=== PATIENT | female | born 1945 | race Caucasian/White ===

== ENCOUNTER 2021-01-27 16:02 | Emergency (ER) | payer MEDICARE, OTHER ==
[~2021-01-27] VITALS: Ht 162.6 cm; Wt 92.6 kg
[2021-01-27 16:38] LABS: BASOPHILS ABSOLUTE AUTO 0.03 K/mm3 (0.00-0.23); BASOPHILS PERCENT AUTO 1 % (0-2); EOSINOPHILS ABSOLUTE AUTO 0.09 K/mm3 (0.00-0.68); EOSINOPHILS PERCENT AUTO 2 % (0-6); Hematocrit 32.5 % (33.0-51.0); Hemoglobin 10.9 g/dL (11.5-16.0); IMMATURE GRAN ABSOLUTE AUTO 0.01 K/mm3 (0.00-0.10); IMMATURE GRAN PERCENT AUTO 0 % (0-1); LYMPHOCYTES ABSOLUTE AUTO 1.36 K/mm3 (0.84-5.20); LYMPHOCYTES PERCENT AUTO 23 % (21-46); MONOCYTES ABSOLUTE AUTO 0.66 K/mm3 (0.16-1.47); MONOCYTES PERCENT AUTO 11 % (4-13); Mean Corpuscular HGB 31.2 pg (26.0-34.0); Mean Corpuscular HGB Conc 33.5 g/dL (31.5-36.5); Mean Corpuscular Volume 93 fL (80-100); Mean Platelet Volume 9.9 fL (9.1-12.4); NEUTROPHILS ABSOLUTE AUTO 3.76 K/mm3 (1.96-9.15); NEUTROPHILS PERCENT AUTO 64 % (41-73); Platelet Count 227 K/mm3 (150-400); RDW Coefficient Variation 11.9 % (11.7-14.2); RDW Standard Deviation 40.6 fL (35.1-46.3); Red Blood Cell Count 3.49 M/mm3 (3.80-5.20); White Blood Cell Count 5.91 K/mm3 (4.00-11.30)
[2021-01-27 16:52] LABS: Alanine Aminotransfer (ALT/SGP 16 U/L (12-78); Albumin, Blood 3.2 g/dL (3.4-5.0); Albumin/Globulin Ratio 1.1 (0.8-1.8); Alk Phos 52 U/L (50-136); Anion Gap 4 mmol/L (6-16); Aspartate Aminotrans (AST/SGOT 11 U/L (12-37); Bilirubin, Total 0.3 mg/dL (0.1-1.0); Blood Urea Nitrogen 38 mg/dL (8-24); Bun/Creatinine Ratio 30.4 (12.0-20.0); CO2, Blood 25 mmol/L (21-32); Calcium, Blood 8.4 mg/dL (8.5-10.1); Chloride, Blood 107 mmol/L (98-108); Creatinine, Blood 1.25 mg/dL (0.40-1.00); Ethanol (Alcohol), Blood, Med <3 mg/dL; Glomerular Filtration Rate 42 (60-); Glucose, Blood 96 mg/dL (70-99); Potassium, Blood 4.9 mmol/L (3.5-5.5); Sodium, Blood 136 mmol/L (136-145); Total Protein, Blood 6.2 g/dL (6.4-8.2)
[2021-01-27 16:55] LABS: International Normalized Ratio 1.03; Prothrombin Time Results 11.1 Sec (9.7-11.5)
[2021-01-27] MEDS ORDERED: SYNTHROID50 MC1 PO (16:57)
[2021-01-27] MEDS ORDERED: LISI20 PO (16:57)
== END 2021-01-27 17:23 | disposition short-term general hospital (02) ==
LOC: ER 16:02
PROVIDERS: Emergency Medicine
DX: I63.9 Cerebral infarction, unspecified (principal); R29.716 NIHSS score 16; I10 Essential (primary) hypertension; E11.9 Type 2 diabetes mellitus without complications; E03.9 Hypothyroidism, unspecified; Z79.899 Other long term (current) drug therapy
CPT/HCPCS: 37195; 70450; 70496; 70498; 80053; 82947; 85025; 85610; 85730; 93005; 93010; 99285-25; G0480; J2997; Q3014; Q9967

== ENCOUNTER 2022-10-08 07:22 | Day surgery (SDC) | payer MEDICARE, OTHER ==
[2022-10-08] VITALS (16 sets, daily range): BP systolic 118–149; BP diastolic 54–95
[~2022-10-08] VITALS: Ht 165.1 cm; Wt 79.1 kg
[~2022-10-08 07:22] MED LIST: CALCIUM CIT 311 EAC7 PO; CINNAMON EXTRA500 MG PO; Crestor40 MG PO; ELIQUIS5 M2 PO; FOLI1 PO; LISI20 PO; MULVITA PO; Oxybutynin Chlo10 MG PO; SYNTHROID50 MC1 PO; VITAMIN D310 MC4 PO; [UNRECOGNIZED DRUG - OTHER] PO
--- NOTE | 2022-10-08 09:07 | NUR ---
Ambulatory in [facility] warming gown applied. History, Chart, Medications and Allergies reviewed before start of procedure.Pre-Op teaching done. Pt verbalizes understanding. Patient States Post-Procedure ride home has been arranged. Patient reports completing Chlorhexadine shower X2 prior to admission to hospital.
--- NOTE | 2022-10-08 12:30 | NUR ---
ARRIVAL TO UNIT PT CAME TO UNIT VIA RGAASTRA FROM PACU. TRANSFERRED TO BED FROM [facility] BY SLIDING. PT A LITTLE GROGGY BUT ABLE TO RESPOND TO QUESTIONS. PT COMPLAINS ABOUT SOME PAIN. PAIN IS IN THE BACK, WHICH IS CHRONIC. MEDICATED PER EMAR. IN ROOM. NO OTHER QUESTIONS AT THIS TIME.
[2022-10-08 13:48] LABS: BASOPHILS ABSOLUTE AUTO 0.03 K/mm3 (0.00-0.23); BASOPHILS PERCENT AUTO 0 % (0-2); EOSINOPHILS ABSOLUTE AUTO 0.01 K/mm3 (0.00-0.68); EOSINOPHILS PERCENT AUTO 0 % (0-6); Hematocrit 38.4 % (33.0-51.0); IMMATURE GRAN ABSOLUTE AUTO 0.05 K/mm3 (0.00-0.10); IMMATURE GRAN PERCENT AUTO 1 % (0-1); LYMPHOCYTES ABSOLUTE AUTO 0.92 K/mm3 (0.84-5.20); LYMPHOCYTES PERCENT AUTO 11 % (21-46); MONOCYTES ABSOLUTE AUTO 0.15 K/mm3 (0.16-1.47); MONOCYTES PERCENT AUTO 2 % (4-13); Mean Corpuscular HGB 32.2 pg (26.0-34.0); Mean Corpuscular HGB Conc 31.3 g/dL (31.5-36.5); Mean Corpuscular Volume 103 fL (80-100); Mean Platelet Volume 10.3 fL (9.1-12.4); NEUTROPHILS ABSOLUTE AUTO 7.01 K/mm3 (1.96-9.15); NEUTROPHILS PERCENT AUTO 86 % (41-73); Platelet Count 208 K/mm3 (150-400); RDW Coefficient Variation 12.3 % (11.7-14.2); RDW Standard Deviation 46.2 fL (35.1-46.3); Red Blood Cell Count 3.73 M/mm3 (3.80-5.20); White Blood Cell Count 8.17 K/mm3 (4.00-11.30)
--- NOTE | 2022-10-08 17:09 | NUR ---
SPOKE WITH DR. TOLEDO REGARDING BLADDER SCAN OF APPROX 50ML. ORDERS RECIEVED TO GIVE 500ML BOLUS.
--- NOTE | 2022-10-08 18:07 | NUR ---
SHIFT SUMMARY POD0 A&P PT A&0X4, ABLE TO RESPOND TO QUESTIONS APPROPRIATLEY. NO COMPLAINTS OF PAIN AT THIS TIME. TOLERATING PO INTAKE WELL. PACKING TAKEN OUT OF THE VAGINA, WNL. PT TOLERATED WELL. PT HAD SOME MILD EDEMA IN THE LLE. PT AND STATE THIS IS NORMAL AND HAPPENS IN THE EVENING EVERY NIGHT. PTS LEGS ELEVATED WITH PILLOWS. PT HAS BEEN ABLE TO AMBULATE WITH WALKER AND 1 PERSON ASST. SALAZAR TAKEN OUT AT 1400, PT HAS NOT VOIDED SINCE. BLADDER SCANNED AT 1600, HAD 50ML IN BLADDER. CALLED DR TOLEDO GOT A 500ML BOLUS. BOLUS RUNNING RIGHT NOW. VSS. NO OTHER QUESTIONS AT THIS TIME. WILL BLADDER SCAN AGAIN AFTER BOLUS IS DONE.
[2022-10-09 04:23] VITALS: BP 120/60
--- NOTE | 2022-10-09 05:16 | NUR ---
SHIFT SUMMARY POD1 FOR A&P REPAIR, VOIDED 300ML MAROON URINE DURING NIGHT. DENIES PAIN, VSS, NO BM DURING THIS SHIFT. PT AMB TO BATHROOM X2 AND IN HALLWAY W/USE OF FWW THEN SAT UP IN RECLINER FOR SEVERAL HOURS. TOLERATED WELL. PT TOLERATING PO INTAKE, DENIES N/V. NO IV FLUIDS THIS SHIFT. PLANS FOR DC TODAY. PT SLEPT WELL T/O NIGHT, NO DISTRESS. CALL LIGHT USED APPROPRIATELY.
[2022-10-09 07:07] VITALS: BP 140/62
[2022-10-09] MEDS ORDERED: IBUP800 PO (07:26)
[2022-10-09] MEDS ORDERED: Norco 5-325 Ta1 EACH PO (07:26)
--- NOTE | 2022-10-09 08:49 | NUR ---
DISCHARGE NOTE: PATIENT AND PATIENTS WERE EDUCATED ON DISCHARGE INSTRUCTIONS. BOTH VERBALIZED UNDERSTANDING OF INSTRUCTIONS AND HAD NO FURTHER QUESTIONS AT THIS TIME. HARD PERSCRIPTION WAS ALREADY FILLED OUT BY YESTERDAY. IV WAS TAKEN OUT AND WNL. PAIN IS MANAGED WITH ORAL PAIN MEDICATIONS. SHE IS VOIDING AND TOLERATING PO INTAKE. PATIENT IS DRESSED AND HAS PERSONAL ITEMS IN THE ROOM GATHERED. PATIENT IS BEING WHEELCHAIRED DOWN TO HER HUSBANDS CAR TO BE TAKEN HOME.
== END 2022-10-09 08:25 | disposition home or self-care (01) ==
LOC: ORSCMMR 07:22 → ORD 10:00 → SURS 11:42 → ORSCMMR 10-09 08:25
PROVIDERS: Obstetrics & Gynecology
PROC: 0JQC0ZZ Repair Pelvic Region Subcutaneous Tissue and Fascia, Open Approach (ICD-10-PCS; principal; 2022-10-08 09:00)
DX: N81.11 Cystocele, midline (principal); N81.6 Rectocele; I10 Essential (primary) hypertension; E11.9 Type 2 diabetes mellitus without complications; E03.9 Hypothyroidism, unspecified; I48.91 Unspecified atrial fibrillation; Z79.01 Long term (current) use of anticoagulants; E78.5 Hyperlipidemia, unspecified; Z79.899 Other long term (current) drug therapy
CPT/HCPCS: 36415; 82947; 85025; A9270; J1100; J1885; J2405; J2704; J3010; J7120

== ENCOUNTER 2023-02-02 21:01 | Inpatient (IN) | payer MEDICARE, OTHER ==
[~2023-02-02] VITALS: Ht 160 cm; Wt 79.3 kg
[~2023-02-02 21:01] MED LIST changes: +IBUP800 PO; +Norco 5-325 Ta1 EACH PO
[2023-02-02 21:53] LABS: Hematocrit 26.1 % (33.0-51.0); Hemoglobin 8.6 g/dL (11.5-16.0); Mean Corpuscular HGB 31.2 pg (26.0-34.0); Mean Corpuscular Volume 95 fL (80-100); Mean Platelet Volume 10.9 fL (9.1-12.4); Platelet Count 175 K/mm3 (150-400); RDW Coefficient Variation 13.4 % (11.7-14.2); Red Blood Cell Count 2.76 M/mm3 (3.80-5.20)
[2023-02-02 22:08] LABS: Albumin, Blood 2.7 g/dL (3.4-5.0); Albumin/Globulin Ratio 0.8 (0.8-1.8); Bilirubin, Total 0.6 mg/dL (0.1-1.0); Bun/Creatinine Ratio 10.6 (12.0-20.0); Calcium, Blood 8.9 mg/dL (8.5-10.1); Creatinine, Blood 6.21 mg/dL (0.40-1.00); Globulin, Blood 3.3 g/dL (2.2-4.0)
[2023-02-02 22:20] LABS: Calcium, Ionized (POC) 1.13 mmol/L (1.10-1.46); Chloride (POC) 107 mmol/L (98-108); Glucose (ISTAT POC) 84 mg/dL (70-99); Hemoglobin (POC) 7.5 g/dL (12.0-16.0); Potassium (POC) 4.8 mmol/L (3.5-5.5); Sodium (POC) 135 mmol/L (135-148); Total CO2 (POC) 17 mmol/L (21-32)
[2023-02-02 22:35] LABS: Source, Urine Straight Cath
[2023-02-02 22:37] LABS: BAND PERCENT MAN 11 % (0-8); BASOPHILS PERCENT MAN 0 % (0-2); EOSINOPHILS PERCENT MAN 1 % (0-6); LYMPHOCYTES PERCENT MAN 5 % (21-46); METAMYELOCYTE PERCENT MAN 1 % (0-0); MONOCYTES PERCENT MAN 2 % (4-13); SEG NEUTROPHILS PERCENT MAN 80 % (41-73); TOTAL CELLS COUNTED 100
[2023-02-02 23:12] LABS: Bilirubin, Urine Neg (Neg); Blood, Urine 5+ (Neg); Glucose Qualitative, Urine Neg (Neg); Ketones, Urine Neg (Neg); Leukocyte Esterase, Urine 3+ (Neg); Nitrite, Urine Neg (Neg); Protein, Urine 3+ (Neg); Urobilinogen, Urine NORM (Normal)
[2023-02-02 23:37] LABS: Appearance, Urine Turbid (Clear); Color, Urine Pale Yellow (P-Yellow)
[2023-02-02 23:39] LABS: Bacteria Many /hpf; Squamous Epithelial Cells Not Seen /hpf (Few); White Blood Cells, Urine TNTC /hpf (0-5)
[2023-02-03] VITALS (80 sets, daily range): BP systolic 63–128; BP diastolic 43–85
--- NOTE | 2023-02-03 02:45 | NUR ---
ASSUMPTION OF CARE: RECEIVED REPORT FROM BASHIR BRAN. PT ARRIVED TO ICU 4 FROM ER AT APPROX 0245 VIA GURNEY. ALERT AND ORIENTED TO PERSON, PLACE AND SITUATION. HAS A DIFFICULT TIME ANSWERING QUESTIONS. SLIGHTLY CONFUSED AT TIMES. LUNG SOUNDS CLEAR IN ALL LOBES. ON RA WITH SPO2 MAINTAINING >92%. DENIES SOB. LEVOPHED STARTED AT 2 MCG/MIN AND TITRATED UP TO 8 MCG/MIN AT THIS TIME TO MAINTAIN MAP >65. SINUS TACH ON THE MONITOR WITH RATE 100-110'S. DENIES ANY CHEST PAIN OR PRESSURE. SALAZAR CATHETER IN PLACE, DRAINING MINIMAL AMOUNTS OF YELLOW URINE. PT C/O PAIN IN HER BACK, WHICH SHE STATES IS CHRONIC. TWO PERIPHERAL IV'S IN LEFT ARM INFUSING MEDICATIONS. ALL BELONGINGS SENT WITH THE PT INCLUDING HER PERSONAL WALKER. SEE ASSESSMENT FOR FULL ASSESSMENT.
[2023-02-03 03:22] LABS: Hematocrit 24.7 % (33.0-51.0); Hemoglobin 8.2 g/dL (11.5-16.0); Mean Corpuscular HGB 31.5 pg (26.0-34.0); Mean Corpuscular HGB Conc 33.2 g/dL (31.5-36.5); Mean Corpuscular Volume 95 fL (80-100); Mean Platelet Volume 10.8 fL (9.1-12.4); Platelet Count 142 K/mm3 (150-400); RDW Coefficient Variation 13.4 % (11.7-14.2); RDW Standard Deviation 46.5 fL (35.1-46.3); White Blood Cell Count 15.33 K/mm3 (4.00-11.30)
[2023-02-03 03:57] LABS: BAND PERCENT MAN 15 % (0-8); BASOPHILS PERCENT MAN 0 % (0-2); EOSINOPHILS ABSOLUTE MAN 0.15 K/mm3 (0.00-0.68); EOSINOPHILS PERCENT MAN 1 % (0-6); METAMYELOCYTE ABSOLUTE MAN 0.15 K/mm3 (0.00-0.00); METAMYELOCYTE PERCENT MAN 1 % (0-0); MONOCYTES ABSOLUTE MAN 0.45 K/mm3 (0.16-1.47); MONOCYTES PERCENT MAN 3 % (4-13); NEUTROPHILS ABSOLUTE MAN 14.56 K/mm3 (1.96-9.15); SEG NEUTROPHILS PERCENT MAN 80 % (41-73); TOTAL CELLS COUNTED 100
[2023-02-03 05:26] LABS: Albumin, Blood 2.3 g/dL (3.4-5.0); Albumin/Globulin Ratio 0.7 (0.8-1.8); Bilirubin, Total 0.5 mg/dL (0.1-1.0); Bun/Creatinine Ratio 10.6 (12.0-20.0); Calcium, Blood 8.3 mg/dL (8.5-10.1); Creatinine, Blood 6.04 mg/dL (0.40-1.00); Globulin, Blood 3.3 g/dL (2.2-4.0); Total Protein, Blood 5.6 g/dL (6.4-8.2)
--- NOTE | 2023-02-03 06:10 | NUR ---
SHIFT SUMMARY: ALERT AND ORIENTED TO PERSON, PLACE AND SITUATION. CONFUSED AT TIMES AND HAS A HARD TIME ANSWERING SOME QUESTIONS. LUNGS REMAIN CLEAR T/O ALL LOBES. SPO2 >92% ON RA. NO C/O SOB. PT IN A SINUS ARRHYTHMIA BUT CONVERTED TO AFIB WITH RVR AT 0600. RATE IN THE 180'S-200'S. PT INSTRUCTED TO BEAR DOWN WITH ATTEMPTS TO VAGAL WHICH WAS UNSUCCESSFUL. PT DENIES ANY CHEST PAIN OR PRESSURE WITH THIS. DR. PINEDA INFORMED AND ORDERS RECEIVED. LEVOPHED INFUSING AT 8 MCG/MIN TO MAINTAIN MAP >65. PT HAS TWO PIV'S IN THE LEFT ARM WHICH ARE INFUSING MEDICATIONS. BICARB RUNNING AT 125 ML/HR. NO BM T/O THE SHIFT. SALAZAR IN PLACE, DRAINING CLOUDY, GREENISH URINE TO GRAVITY.
--- NOTE | 2023-02-03 06:34 | NUR ---
UPDATE DR WILKERSON AT BEDSIDE TO EVALUATE REGARDING AFIB WITH RVR. AMIO BOLUS COMPLETE; RATE IMPROVED BUT CONT TO BE 140-160'S. HE DECIDED AGAINST CENTRAL LINE AT THIS TIME DUE TO IMPROVEMENT IN HR AND ALSO WITH BP IMPROVING AT THIS TIME. LEVOPHED TITRATED DOWN TO 2MCG/MIN. NEW ORDERS FOR 500ML BOLUS. RICHARD NOT STARTED. PT CONT TO NOT HAVE ANY CHEST PAIN OR DYSPNEA.
--- NOTE | 2023-02-03 07:00 | NUR ---
ASSUMPTION OF CARE PT RECEIVING LEVOPHED 3MCG/MIN AND BICARB 125ML/HR. SHE IS ALERT AND ORIENTED. SLOW TO RESPOND TO QUESTIONS. SHE IS AFIB ON MONITOR WITH RATE 140S-170S. SHE DENIES CP BUT STS SHE CAN FEEL "FLUTTERING". PT DENIES SOB, ON RA WITH SPO2 >95%. SALAZAR PATENT AND DRAINING TO GRAVITY. PT REQUESTS TO BE CALLED TO COME VISIT. CALL UNANSWERED, VOICEMAIL LEFT. HOSPITALIST AT BEDSIDE FROR ROUNDING.
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
[2023-02-03 13:57] LABS: Hematocrit 23.8 % (33.0-51.0); Hemoglobin 8.3 g/dL (11.5-16.0); Mean Corpuscular HGB 32.2 pg (26.0-34.0); Mean Corpuscular HGB Conc 34.9 g/dL (31.5-36.5); Mean Corpuscular Volume 92 fL (80-100); Mean Platelet Volume 10.9 fL (9.1-12.4); Platelet Count 126 K/mm3 (150-400); RDW Coefficient Variation 13.6 % (11.7-14.2); RDW Standard Deviation 46.3 fL (35.1-46.3); Red Blood Cell Count 2.58 M/mm3 (3.80-5.20); White Blood Cell Count 21.38 K/mm3 (4.00-11.30)
--- NOTE | 2023-02-03 14:33 | NUR ---
UPDATE VISITED PT THIS MORNING AND UPDATED ON PT CONDITION. HE TOOK PT'S RED WALKER HOME WITH HIM. SHE CONTINUES TO RECEIVE LEVOPHED 1MCG/MIN, BICARB 125ML/HR, AND AMIODARONE. HR 110S-120S. PT DENIES CP. HOSPITALIST VERONICA, DISCUSSED SEPSIS FLUIDS, NO ORDERS FOR ADDITIONAL IV FLUIDS. LABS DRAWN THIS AFTERNOON. PLAN TO START HEPARIN GTT.
[2023-02-03 14:45] LABS: Potassium, Blood 5.2 mmol/L (3.5-5.5)
[2023-02-03 15:13] LABS: Bun/Creatinine Ratio 11.7 (12.0-20.0); Calcium, Blood 8.1 mg/dL (8.5-10.1); Creatinine, Blood 5.48 mg/dL (0.40-1.00); Potassium, Blood 4.8 mmol/L (3.5-5.5)
[2023-02-03 15:14] LABS: Percent Saturation 5.7 % (15.0-50.0)
[2023-02-03 15:15] LABS: International Normalized Ratio 1.41; Prothrombin Time Results 14.5 Sec (9.7-11.5)
[2023-02-03 15:27] LABS: Anti-Xa UFH, PHA Monitoring >1.50 IU/mL
[2023-02-03 15:45] LABS: Potassium, Blood 4.3 mmol/L (3.5-5.5)
--- NOTE | 2023-02-03 17:22 | NUR ---
SHIFT SUMMARY PT RECEIVING LEVOPHED 1MCG/MIN, AMIODARONE 0.5MG/HR, BICARB 125ML/HR, AND HEPARIN 15UNITS/KG/HR. SHE HAS DENIED CP AND SOB THROUGHOUT THE SHIFT. SHE IS ALERT AND ORIENTED, SLOW TO RESPOND AT TIMES. AFIB ON MONITOR WITH RATE 90S-110S. SHE HAS HAD A FEW 2-2.5 SECOND PAUSES, PT ASYMPTOMATIC. LUNGS ARE CLEAR, SPO2 >96% ON RA. DECREASED APPETITE BUT HAS ATE PORTIONS OF MEALS. SALAZAR PATENT AND DRAINING TO GRAVITY. PICC LINE PLACED THIS AM. BED IN LOW POSITION, CALL LIGHT WITHIN REACH.
--- NOTE | 2023-02-03 19:00 | NUR ---
ASSUMPTION OF CARE PT A&Ox4, SLOW TO RESPOND TO QUESTIONS, CALLS AND COMMUNICATES NEEDS APPROPRIATELY. LEVOPHED gtt INFUSING AT 1mcg/min. BP STABLE, AFIB 100's, DENIES CP/PRESSURE. SpO2> 92% RA, DENIES CP/PRESSURE. SECOND BAG OF BICARB gtt INFUSING AT 125mLs/hr. AMIODARONE gtt INFUSING AT 0.5mg/min. HEPARIN gtt INFUSING AT 15units/hr, MANAGED PER PHARMACY. SALAZAR CATH IN PLACE, PATENT, DRAINING TO GRAVITY. PT EATING DINNER AND REPORTS THAT SHE HAS NOT FELT VERY HUNGRY AND ASKED THIS RN TO REMOVE TRAY. HELPED PT CALL FRIEND. BED IN LOWEST POSITION, CALL LIGHT IN REACH.
[2023-02-04] VITALS (93 sets, daily range): BP systolic 77–135; BP diastolic 43–106
--- NOTE | 2023-02-04 05:08 | NUR ---
SHIFT SUMMARY PT A&Ox4, SLOW TO RESPOND TO QUESTIONS, CALLS AND COMMUNICATES NEEDS APPROPRIATELY. LEVOPHED gtt INFUSING AT 5mcg/min. BP STABLE, DENIES CP/PRESSURE. CONVERTED FROM AFIB TO SINUS 50-70's AT APPROXIMATELY 2030. SpO2> 92% RA, DENIES CP/PRESSURE. SECOND BAG OF BICARB gtt FINISHED INFUSING. AMIODARONE gtt INFUSING AT 0.5mg/min. HEPARIN gtt INFUSING AT 14units/hr, MANAGED PER PHARMACY. SALAZAR CATH IN PLACE, PATENT, DRAINING TO GRAVITY. NO OTHER EVENTS, WILL REPORT TO ONCOMING RN.
[2023-02-04 06:13] LABS: Hematocrit 24.9 % (33.0-51.0); Hemoglobin 8.7 g/dL (11.5-16.0); Mean Corpuscular HGB 31.6 pg (26.0-34.0); Mean Corpuscular HGB Conc 34.9 g/dL (31.5-36.5); Mean Corpuscular Volume 91 fL (80-100); Mean Platelet Volume 11.1 fL (9.1-12.4); Platelet Count 147 K/mm3 (150-400); RDW Coefficient Variation 13.9 % (11.7-14.2); RDW Standard Deviation 45.9 fL (35.1-46.3); Red Blood Cell Count 2.75 M/mm3 (3.80-5.20); White Blood Cell Count 19.44 K/mm3 (4.00-11.30)
[2023-02-04 06:42] LABS: Bun/Creatinine Ratio 12.5 (12.0-20.0); Calcium, Blood 7.9 mg/dL (8.5-10.1); Creatinine, Blood 5.19 mg/dL (0.40-1.00)
[2023-02-04 07:02] LABS: BAND PERCENT MAN 12 % (0-8); BASOPHILS ABSOLUTE MAN 0.19 K/mm3 (0.00-0.23); BASOPHILS PERCENT MAN 1 % (0-2); EOSINOPHILS ABSOLUTE MAN 0.38 K/mm3 (0.00-0.68); EOSINOPHILS PERCENT MAN 2 % (0-6); LYMPHOCYTES ABSOLUTE MAN 0.97 K/mm3 (0.84-5.20); LYMPHOCYTES PERCENT MAN 5 % (21-46); MONOCYTES ABSOLUTE MAN 0.38 K/mm3 (0.16-1.47); MONOCYTES PERCENT MAN 2 % (4-13); NEUTROPHILS ABSOLUTE MAN 17.49 K/mm3 (1.96-9.15); SEG NEUTROPHILS PERCENT MAN 78 % (41-73); TOTAL CELLS COUNTED 100
--- NOTE | 2023-02-04 11:54 | NUR ---
CARE ASSUMPTION PT A&OX3, ANSWERS MOST QUESTIONS CORRECTLY, UNSURE OF DATE. SP02>90% ON RA. DENIES COUGH/SOB. TELEMETRY SHOWS NSR, HR 80 MOSTLY. BP SOFT. UPON CARE ASSUMPTION LEVO INFUSING INTO PICC AT 4 MCG/MIN, CURRENTLY INFUSING AT 2 MCG/MIN, SEE VITALS. AMIODERONE COMPLETED INFUSION THIS AM. PT W/ CRITICAL PTT THIS AM. CALL TO PHARMACY. PHARMACY W/ ORDERS TO PAUSE FOR 1 HR THEN START AT DECREASED RATE, SEE EMAR. ECHO IN ROOM THIS AM. PT CURRENTLY WORKING WITH OT, ABLE TO SIT AT SIDE OF BED, DIFFICULTY FLATTING IN L FOOT TO STAND, STANDING ON L BALL OF FOOT/TOES INSTEAD OF FLAT. SALAZAR CATHETER DRAINING YELLOW URINE TO GRAVITY. ATTEMPTED BM ON BED ESQUEDA WITH NO SUCCESS. IN ROOM TO VISIT THIS AM. CALL LIGHT INREACH.
--- NOTE | 2023-02-04 17:23 | NUR ---
UPDATE PT UNABLE TO BEAR WEIGHT/PLACE L FOOT FLAT ON FLOOR WHEN WORKING W/ OT TODAY. THIS AFTERNOON, PT UNABLE TO FLEX FOOT W/O PAIN FOR PT. PT STATES PAIN WHEN PALPATING L ANKLE. CALL PLACED TO MD ORTEGA. MD ORTEGA W/ ORDERS FOR XRAY.
--- NOTE | 2023-02-04 17:42 | NUR ---
SHIFT SUMMARY NO ACUTE CHANGES SINCE CARE ASSUMPTION. AMIODERONE OFF. LEVOPHED OFF. HEPARIN INFUSING PER EMAR INTO PICC. PT WORKED W/ PT THIS EVENING, SEE PREVIOUS NOTE. PT IN BED EATING DINNER. CALL LIGHT IN REACH.
--- NOTE | 2023-02-04 19:46 | NUR ---
ASSUMPTION OF CARE PT A&Ox3-4, SLOW TO RESPOND TO QUESTIONS, CALLS AND COMMUNICATES NEEDS APPROPRIATELY. LEVOPHED ON STANDBY. BP SOFT, SINUS 80's, DENIES CP/PRESSURE. SpO2> 92% RA, DENIES CP/PRESSURE. HEPARIN gtt INFUSING AT 12units/hr, MANAGED PER PHARMACY. SALAZAR CATH IN PLACE, PATENT, DRAINING TO GRAVITY. PT AGREED TO BEDBATH, WOULD LIKE TO WAIT UNTIL AFTER X-RAY OF L ANKLE IS DONE. BED IN LOWEST POSITION, CALL LIGHT IN REACH.
[2023-02-05] VITALS (85 sets, daily range): BP systolic 82–146; BP diastolic 46–102
[2023-02-05 05:00] LABS: BASOPHILS ABSOLUTE AUTO 0.04 K/mm3 (0.00-0.23); BASOPHILS PERCENT AUTO 0 % (0-2); EOSINOPHILS ABSOLUTE AUTO 0.59 K/mm3 (0.00-0.68); EOSINOPHILS PERCENT AUTO 5 % (0-6); Hematocrit 24.1 % (33.0-51.0); Hemoglobin 8.2 g/dL (11.5-16.0); IMMATURE GRAN ABSOLUTE AUTO 0.07 K/mm3 (0.00-0.10); IMMATURE GRAN PERCENT AUTO 1 % (0-1); LYMPHOCYTES ABSOLUTE AUTO 1.47 K/mm3 (0.84-5.20); LYMPHOCYTES PERCENT AUTO 12 % (21-46); MONOCYTES ABSOLUTE AUTO 1.06 K/mm3 (0.16-1.47); MONOCYTES PERCENT AUTO 8 % (4-13); Mean Corpuscular HGB 31.2 pg (26.0-34.0); Mean Corpuscular Volume 92 fL (80-100); Mean Platelet Volume 11.4 fL (9.1-12.4); NEUTROPHILS ABSOLUTE AUTO 9.35 K/mm3 (1.96-9.15); NEUTROPHILS PERCENT AUTO 74 % (41-73); Platelet Count 149 K/mm3 (150-400); RDW Coefficient Variation 13.8 % (11.7-14.2); RDW Standard Deviation 47.1 fL (35.1-46.3); Red Blood Cell Count 2.63 M/mm3 (3.80-5.20); White Blood Cell Count 12.58 K/mm3 (4.00-11.30)
[2023-02-05 05:19] LABS: Calcium, Blood 8.1 mg/dL (8.5-10.1); Creatinine, Blood 4.68 mg/dL (0.40-1.00); Potassium, Blood 3.5 mmol/L (3.5-5.5)
--- NOTE | 2023-02-05 05:47 | NUR ---
SHIFT SUMMARY PT A&Ox3-4, UNSURE OF DATE AT TIMES. SLOW TO RESPOND TO QUESTIONS, CALLS AND COMMUNICATES NEEDS APPROPRIATELY. LEVOPHED gtt INFUSING AT 4mcg/min. BP STABLE, DENIES CP/PRESSURE. AT APPROXIMATELY 2300, CONVERTED FROM 70-80's TO AFIB 130-150's, ASYMPTOMATIC, NOTIFIED PHYSICIAN, ORDERS PLACED. AT APPROXIMATELY 0100 CONVERTED FROM AFIB TO SINUS 60's. HR BEGAN SUSTAINING SINUS LESLIE 40-50's AT APPROXIMATELY 0430, PHYSICIAN NOTIFIED, ORDERS PLACED. SpO2> 92% RA, DENIES CP/PRESSURE. HEPARIN gtt INFUSING AT 14units/hr, MANAGED PER PHARMACY. SALAZAR CATH IN PLACE, PATENT, DRAINING TO GRAVITY. NO OTHER EVENTS, WILL REPORT TO ONCOMING RN.
--- NOTE | 2023-02-05 07:44 | NUR ---
Assumed care at 0700, bedside report received. Pt sleeping in bed, on RA. Levophed infusing at 5 mcg/min, heparin infusing at 14 units/kg/hr, NS TKO. Martinez catheter in place, draining to gravity. No acute needs at time of report, will continue to monitor.
--- NOTE | 2023-02-05 18:32 | NUR ---
Shift summary. Pt resting in bed, up to chair all afternoon this shift. Pt remains A&O, on RA. Levophed titrated off this shift, heparin discontinued. Martinez catheter remains in place. No acute events this shift, VS stable. See chart for further details. Will report off to nightshift RN.
[2023-02-06] VITALS (19 sets, daily range): BP systolic 88–152; BP diastolic 48–123
[2023-02-06 06:27] LABS: BASOPHILS ABSOLUTE AUTO 0.04 K/mm3 (0.00-0.23); BASOPHILS PERCENT AUTO 1 % (0-2); EOSINOPHILS PERCENT AUTO 5 % (0-6); Hematocrit 23.2 % (33.0-51.0); IMMATURE GRAN ABSOLUTE AUTO 0.06 K/mm3 (0.00-0.10); IMMATURE GRAN PERCENT AUTO 1 % (0-1); LYMPHOCYTES ABSOLUTE AUTO 1.33 K/mm3 (0.84-5.20); LYMPHOCYTES PERCENT AUTO 16 % (21-46); MONOCYTES ABSOLUTE AUTO 0.91 K/mm3 (0.16-1.47); MONOCYTES PERCENT AUTO 11 % (4-13); Mean Corpuscular HGB 31.5 pg (26.0-34.0); Mean Corpuscular HGB Conc 34.5 g/dL (31.5-36.5); Mean Corpuscular Volume 91 fL (80-100); Mean Platelet Volume 11.1 fL (9.1-12.4); NEUTROPHILS ABSOLUTE AUTO 5.64 K/mm3 (1.96-9.15); NEUTROPHILS PERCENT AUTO 67 % (41-73); Platelet Count 125 K/mm3 (150-400); RDW Coefficient Variation 14.1 % (11.7-14.2); RDW Standard Deviation 47.8 fL (35.1-46.3); Red Blood Cell Count 2.54 M/mm3 (3.80-5.20); White Blood Cell Count 8.38 K/mm3 (4.00-11.30)
--- NOTE | 2023-02-06 06:28 | NUR ---
SHIFT SUMMARY: NO ACUTE CHANGES OVERNIGHT; VSS THROUGHOUT THE SHIFT. PT A&O X 4, PLEASANT AND COOPERATIVE WITH CARE. PT TALKED WITH THIS RN ABOUT WORRYING THAT SHE IS STARTING TO FEEL ISOLATED; THIS RN SAT AND TALKED WITH PT FOR A LITTLE BIT. PT HAS BEEN ON RA WITH CLEAR LUNG SOUNDS THROUGHOUT, DIM BASES, AND SPO2 94<; DENIES SOB AT THIS TIME. PT HAS BEEN SB-SR WITH HR 50-70'S, SBP 100-110, AND PT DENIES CHEST PAIN/PRESSURE. ABD SOFT, NON-TENDER WITH HYPOACTIVE BOWEL SOUNDS IN ALL QUADRANTS; PT TOLERATING PO INTAKE BUT REPORTS LOW APPETITE. PT HAS HX OF T2DM, CALL PLACED TO RESIDENT FOR CBG ORDERS; AC CBG CHECKS ORDERED PER RESIDENT. PT HAS NO HAD A BOWEL MOVEMENT SINCE BEFORE ADMISSION; RESIDENT NOTIFIED AND BOWEL PROTOCOL MEDS ORDERED. PT HAS SALAZAR IN PLACE AND DRAINING TO GRAVITY; 1200 ML URINE OUTPUT, URINE CLEAR, LIGHT YELLOW AND SEDIMENTS NOTED. PT HAS SOME CHRONIC PAIN IN BACK AND PAIN IN LEFT LEG FROM FALL PRIOR TO ADMISSION. PT HAS BEEN TURNING INDEPENDENTLY WITH ASSISTANCE WITH BOOSTING OCCASIONALLY. BED LOWERED, CALL LIGHT IN REACH, WILL REPORT OFF TO ONCOMING RN.
[2023-02-06 06:58] LABS: Albumin, Blood 1.8 g/dL (3.4-5.0); Albumin/Globulin Ratio 0.5 (0.8-1.8); Bilirubin, Total 0.2 mg/dL (0.1-1.0); Bun/Creatinine Ratio 13.4 (12.0-20.0); Calcium, Blood 8.6 mg/dL (8.5-10.1); Creatinine, Blood 3.82 mg/dL (0.40-1.00); Globulin, Blood 3.5 g/dL (2.2-4.0); Potassium, Blood 3.7 mmol/L (3.5-5.5); Total Protein, Blood 5.3 g/dL (6.4-8.2)
--- NOTE | 2023-02-06 07:12 | NUR ---
Assumed care. Bedside report received from nightshift RN. Pt resting in bed, alert and oriented, on RA. Pt c/o pain in left leg, able to relieve some discomfort with repositioning. PICC line in place, wnl. Martinez catheter in place. VS stable, will continue to monitor.
--- NOTE | 2023-02-06 18:06 | NUR ---
Shift summary. Pt resting in bed. Alert and oriented, on RA. Pt up to chair this afternoon, able to stand and pivot with gait belt, walker and two person assist. No acute events this shift, VS stable. See chart for further details. Will continue to monitor and report off to nightshift RN.
[2023-02-07 04:39] VITALS: BP 123/66
[2023-02-07 05:08] LABS: BASOPHILS ABSOLUTE AUTO 0.05 K/mm3 (0.00-0.23); BASOPHILS PERCENT AUTO 1 % (0-2); EOSINOPHILS ABSOLUTE AUTO 0.36 K/mm3 (0.00-0.68); EOSINOPHILS PERCENT AUTO 4 % (0-6); Hematocrit 25.4 % (33.0-51.0); Hemoglobin 8.5 g/dL (11.5-16.0); IMMATURE GRAN ABSOLUTE AUTO 0.11 K/mm3 (0.00-0.10); IMMATURE GRAN PERCENT AUTO 1 % (0-1); LYMPHOCYTES ABSOLUTE AUTO 1.48 K/mm3 (0.84-5.20); LYMPHOCYTES PERCENT AUTO 16 % (21-46); MONOCYTES ABSOLUTE AUTO 1.18 K/mm3 (0.16-1.47); MONOCYTES PERCENT AUTO 13 % (4-13); Mean Corpuscular HGB 30.8 pg (26.0-34.0); Mean Corpuscular HGB Conc 33.5 g/dL (31.5-36.5); Mean Corpuscular Volume 92 fL (80-100); Mean Platelet Volume 10.9 fL (9.1-12.4); NEUTROPHILS ABSOLUTE AUTO 6.03 K/mm3 (1.96-9.15); NEUTROPHILS PERCENT AUTO 66 % (41-73); Platelet Count 131 K/mm3 (150-400); RDW Coefficient Variation 14.3 % (11.7-14.2); RDW Standard Deviation 48.4 fL (35.1-46.3); Red Blood Cell Count 2.76 M/mm3 (3.80-5.20); White Blood Cell Count 9.21 K/mm3 (4.00-11.30)
--- NOTE | 2023-02-07 05:15 | NUR ---
SHIFT SUMMARY: DANI CUTE CHANGES OVERNIGHT; VSS THROUGHOUT THE SHIFT. PT REMAINS A&O X 4, ANXIOUS, AND COOPERATIVE WITH CARE. PT HAS BEEN RA, CLEAR LUNG SOUNDS AND DENIES SOB. PT IN AFIB FOR BEGINNING OF SHIFT AND CONVERTED BACK TO SR WITH HR IN THE 70-80'S, SBP 120'S AND DENIES CHEST PAIN/PRESSURE AT THIS TIME. PT HAS HYPOACTIVE BOWEL SOUNDS IN ALL QUADRANTS, TOLERATING PO INTAKE BUT HAS DECREASED APPETITE. SALAZAR IN PLACE AND DRAINING TO GRAVITY; URINE YELLOW, CLEAR WITH 900 ML OUTPUT. PT HAS BEEN HAVING PAIN IN LEFT LEG/HIP AND NEEDING ASSISTANCE WITH REPOSITIONING. PT HAS RECIEVED PRN TYLENOL AND NORCO PER EMAR FOR PAIN. PT CONTINUES TO BE ANXIOUS ABOUT EVERYTHING. BED LOWERED, CALL LIGHT IN REACH, WILL CONTINUE TO MONITOR AND REPORT OFF TO ONCOMING RN.
[2023-02-07 05:34] LABS: Bun/Creatinine Ratio 15.2 (12.0-20.0); Calcium, Blood 8.6 mg/dL (8.5-10.1); Creatinine, Blood 3.02 mg/dL (0.40-1.00); Potassium, Blood 3.7 mmol/L (3.5-5.5)
[2023-02-07 09:43] VITALS: BP 133/64
--- NOTE | 2023-02-07 09:52 | NUR ---
ICU 4 TO 211 PT BROUGHT OVER TO HER NEW ROOM FROM THE ICU BY ICU HEAD RESIDENT IN HER BED, TRANSFERRED OVER TO NEW BED VIA SLIDING HER ON THE LIFT SHEET. ORIENTED HER TO HER NEW ROOM, BRIEFLY DISCUSSED PLAN OF CARE FOR THE DAY. SHE DOES NOT APPEAR TO BE IN ANY DISTRESS AT THIS TIME, RESTING COMFORTABLY IN HER BED, SALAZAR IN PLACE AND DRAINING TO GRAVITY.
--- NOTE | 2023-02-07 10:07 | NUR ---
Assumed care at 0700. Bedside report received from nightshift RN. Pt Alert and oriented, on RA. Lung sounds clear, Sinus rhythm on monitor. PICC in ELIAZAR wnl, Martinez catheter in place. No acute needs this morning. Report given to to medical floor RN, Pt transferred at approximately 0845 to room 211. All personal belongings sent with patient.
[2023-02-07 15:23] VITALS: BP 126/64
--- NOTE | 2023-02-07 17:39 | NUR ---
SHIFT SUMMARY PT RESTED COMFORTABLY MOST OF THIS SHIFT. SALAZAR CATH DRAINING YELLOW CLEAR URINE TO GRAVITY. PICC LINE IN PLACE ON RIGHT ARM. VSS. PAIN MEDICATED PER EMR. CALL LIGHT WITHIN REACH, BED IN LOWEST POSITION.
--- NOTE | 2023-02-07 18:51 | NUR ---
SHIFT SUMMARY S/P MAY, A/OX4, VSS, TOLERATING PO, SALAZAR IN PLACE FOR STRICT I/O, GOOD URINE OUTPUT. NO ACUTE EVENTS THIS SHIFT, CALL LIGHT IN REACH.
[2023-02-07 19:59] VITALS: BP 98/64
--- NOTE | 2023-02-07 21:04 | NUR ---
HOSPITALIST NOTIFIED LEAD MINER REPORTED THAT PT IS GOING IN & OUT OF AFIB/RVR, ALSO A SMALL RUN OF SVT, PT IS ASYMPTOMATIC AT THE TIME, BP IS 98/64. NO INTERVENTIONS ORDERED AT THIS TIME, WCTM & CALL FOR ANY CHANGES. PT IS RESTING QUIETLY, CALL LIGHT IN REACH.
[2023-02-07 22:03] VITALS: BP 122/64
[2023-02-08] VITALS (23 sets, daily range): BP systolic 79–150; BP diastolic 49–98
[2023-02-08 05:08] LABS: Hematocrit 25.6 % (33.0-51.0); Hemoglobin 8.8 g/dL (11.5-16.0); Mean Corpuscular HGB 31.3 pg (26.0-34.0); Mean Corpuscular HGB Conc 34.4 g/dL (31.5-36.5); Mean Corpuscular Volume 91 fL (80-100); Mean Platelet Volume 10.6 fL (9.1-12.4); Platelet Count 164 K/mm3 (150-400); RDW Coefficient Variation 13.7 % (11.7-14.2); RDW Standard Deviation 46.3 fL (35.1-46.3); Red Blood Cell Count 2.81 M/mm3 (3.80-5.20); White Blood Cell Count 10.88 K/mm3 (4.00-11.30)
[2023-02-08 05:30] LABS: Albumin, Blood 2.1 g/dL (3.4-5.0); Albumin/Globulin Ratio 0.6 (0.8-1.8); Bilirubin, Total 0.3 mg/dL (0.1-1.0); Bun/Creatinine Ratio 17.3 (12.0-20.0); Calcium, Blood 9.1 mg/dL (8.5-10.1); Creatinine, Blood 2.49 mg/dL (0.40-1.00); Globulin, Blood 3.7 g/dL (2.2-4.0); Potassium, Blood 3.5 mmol/L (3.5-5.5); Total Protein, Blood 5.8 g/dL (6.4-8.2)
[2023-02-08 05:44] LABS: BAND PERCENT MAN 3 % (0-8); BASOPHILS PERCENT MAN 0 % (0-2); EOSINOPHILS ABSOLUTE MAN 0.21 K/mm3 (0.00-0.68); EOSINOPHILS PERCENT MAN 2 % (0-6); LYMPHOCYTES ABSOLUTE MAN 1.41 K/mm3 (0.84-5.20); LYMPHOCYTES PERCENT MAN 13 % (21-46); METAMYELOCYTE PERCENT MAN 1 % (0-0); MONOCYTES ABSOLUTE MAN 0.43 K/mm3 (0.16-1.47); MONOCYTES PERCENT MAN 4 % (4-13); SEG NEUTROPHILS PERCENT MAN 77 % (41-73); TOTAL CELLS COUNTED 100
--- NOTE | 2023-02-08 06:06 | NUR ---
HOSPITALIST NOTIFIED PT C/O CHEST PAIN 02/23, GERMAIN NOTIFIED, EKG ORDERED, DR. GROVES CAME TO THE FLOOR TO COMPARE EKD'S, TROPONIN ORDERED NOW, REPEAT EKH/TROP IN 2 HOURS, PT IS A%O X4, RESTING QUIETLY, CALL LIGHT IN REACH
--- NOTE | 2023-02-08 06:14 | NUR ---
SUMMARY PT WAS ABLE TO SLEEP THROUGH MOST OF THE NIGHT, SHE HAD AN EPISODE OF CEST PAIN THIS AM, EKG & TROPONIN WERE DONE & ORDERED TO BE REPEATED IN 2 HOURS,PT STATED THAT SHE NEEDED BOWEL CARE, TROPONIN CAME BACK WNL, RESTING AT THIS TIME, WCTM & REPORT, CALL LIGHT IN REACH
--- NOTE | 2023-02-08 10:55 | NUR ---
NOTES: ASSUMED CARE OF PATIENT AT 0915. RECEIVED REPORT FROM YINA FINK REGARDING PATIENT CONDITION AND PLAN OF CARE.
--- NOTE | 2023-02-08 18:00 | NUR ---
U TESTER REGULATOR REPROTS PT'S HR HAS BEEN SUSTAINING BETWEEN 70'S-160'S, PT DENIES ANY SYMPTOMS BUT SEEMS MORE CONFUSED THIS AFTERNOON, DR. LOZOYA NOTIFIED, STATES WILL COME SEE PT.
--- NOTE | 2023-02-08 19:00 | NUR ---
ASSUMED CARE ASSUMED CARE OF PT AT THIS TIME, RN REPORTS THAT THEY HAD JUST FINISHED WITH A RAPID RESPONSE DUE TO HYPOTENSION/AFIB. PT IS AWAKE AT THIS TIME, ORIENTED X4, DENIES CP/PRESSURE, DENIES SOB, RESTING SUPINE IN BED, NS BOLUS INFUSING, ON RA. DAMPER WORKER CALLED, REPORTS PT IS AFIB 125, HR CONTINUES TO REACH 150'S, WCTM PT STATUS & REPORT TO HOSPITALIST WHEN BOLUS IS COMPLETE. PT ENC TO CALL [facility] FOR SYMPTOMS OR CHANGES, CALL LIGHT IN REACH,
--- NOTE | 2023-02-08 19:43 | NUR ---
SHIFT SUMMARY: PATIENT IS A/OX3-4 c SLIGHT FORGETFUL TOWARDS THE END OF THIS SHIFT. PATIENT DENIES CP/PRESSURE, SOB, N/V. REPORTS PAIN TO L LEG, OFFERED PRN PAIN MEDS, BUT DECLINE. PATIENT WORK c PT/OT THIS AM AND UP IN THE CHAIR FOR ABOUT 3 HRS THIS SHIFT AND REQUESTED TO TRANSFERRED BACK IN BED. PATIENT ON TELE, SR HR IN THE LOW 80'S UNTIL AROUND 1700'S PATIENT CONVERTED BACK TO AFIB HR IN THE 130'S-160'S BPM PER EXPLORATION MANAGER. THIS RN ASSESS PATIENT, DENIES CP/PRESSURE, DIZZINESS AND N/V. PATIENT HR CONTINUES TO BE ALL OVER THE PLACE TO THE POINT REACH TO 170'S BPM c SBP IN THE 80'S. FITNESS SALES CONSULTANT WERE ACTIVATED AND THIS RN STAYED IN PATIENT ROOM. PATIENT CONTINUES TO DENIES CP/PRESSURE, N/V, DIZZINESS AND SOB. FITNESS SALES CONSULTANT ARRIVED IN ROOM AT AROUND 1830'S, CHARGED RN FARZANA RECEIVED VO BY DR. LOZOYA TO INFUSE 1L BOLUS. POWERGLIDE TO ELIAZAR INFUSING NS. VITAL SIGNS IS IMPROVING. BEDSIDE REPORT GIVEN TO BEE RN, JHON.
--- NOTE | 2023-02-08 20:58 | NUR ---
RESIDENT NOTIFIED UPDATED ON PT STATUS POST BOLUS, PT REMAINS A&O X4, RESTING QUIETLY, BP IS NOW WNL AND APPEARS TO BE HOLDING STEADY, AFIB, HR CONSISTENTLY 145-160 FOR >30 MINUTES REPORTED BY FLORAL ASSOCIATE, PT CONTINUES TO BE ASYMPTOMATIC. NO NEW ORDERS AT THIS TIME, RESIDENT STATED SHE WILL LOOK AT THE CHART & CONSIDER FURTHER ORDERS.
--- NOTE | 2023-02-08 21:41 | NUR ---
TRANSFER PT'S CONDITION DISCUSSED WITH NURSING GOAT FARMER & COMMUNICATION EQUIPMENT REPAIRER, PT'S CONDITION IS NOT IMPROVING WITH CURRENT INTERVENTIONS SO THE DECISION WAS MADE TO TRANSFER PT TO A HIGHER LEVEL OF CARE. WAS NOTIFIED, SHE AGREES WITH THE TRANSFER. PT WAS TRANSFERRED TO PCU 12, REPORT GIVEN TO MICHAEL BRAN. PT REMAINS AWAKE, ALERT AND ASYMPTOMATIC, AFIB 140'S, RESP UNLABORED.
[2023-02-08 21:57] LABS: Bun/Creatinine Ratio 25.1 (12.0-20.0); Calcium, Blood 8.7 mg/dL (8.5-10.1); Creatinine, Blood 2.27 mg/dL (0.40-1.00); Magnesium, Blood 2.1 mg/dL (1.6-2.4); Potassium, Blood 3.7 mmol/L (3.5-5.5)
--- NOTE | 2023-02-08 22:00 | NUR ---
ARRIVAL TO PCU 12 PT ARRIVED TO PCU AT APPROXIMATELY 2135. PT TRANSFERED FROM SURGICAL 211 TO PCU 12 VIA HOSPITAL BED BY TWO CLINICAL STAFF MEMBERS. PT A&Ox4, COMMUNICATES NEEDS APPROPRIATELY. ORIENTED TO CALL LIGHT/UNIT. BP STABLE, DENIES CP/PRESSURE. ALFUTTER 130-150's, EKG DONE TO CONFIRM RHYTHM. PT CONVERTING BETWEEN SINUS 90's TO ALFUTTER 140's, REMAINING IN SINUS JUST BRIEFLY. ADMINISTERED RATE CONTROL MEDICATIONS PER EMAR. SpO2> 92% RA, DENIES SOB. SALAZAR CATH IN PLACE, PATENT, DRAININ TO GRAVITY. PT RESTING COMFORTABLY. BED IN LOWEST POSITION, CALL LIGHT IN REACH.
[2023-02-09] VITALS (38 sets, daily range): BP systolic 101–146; BP diastolic 46–92
[2023-02-09 05:18] LABS: Hematocrit 21.6 % (33.0-51.0); Hemoglobin 7.2 g/dL (11.5-16.0)
[2023-02-09 05:36] LABS: Albumin, Blood 1.9 g/dL (3.4-5.0); Albumin/Globulin Ratio 0.6 (0.8-1.8); Bilirubin, Total 0.2 mg/dL (0.1-1.0); Bun/Creatinine Ratio 31.6 (12.0-20.0); Calcium, Blood 8.3 mg/dL (8.5-10.1); Creatinine, Blood 2.15 mg/dL (0.40-1.00); Globulin, Blood 3.2 g/dL (2.2-4.0); Potassium, Blood 3.8 mmol/L (3.5-5.5); Total Protein, Blood 5.1 g/dL (6.4-8.2)
--- NOTE | 2023-02-09 05:47 | NUR ---
SHIFT SUMMARY SEE PREVIOUS NOTE. PT A&Ox4, CALLS AND COMMUNICATES NEEDS APPROPRIATELY. SLOW TO RESPOND TO QUESTIONS. BP STABLE, DENIES CP/PRESSURE. AT APPROXIMATELY 0045, CONVERTED FROM AFLUTTER 110-130's TO SINUS 60-80's, DENIES CP/PRESSURE. SpO2> 92% RA, DENIES SOB. SALAZAR CATH IN PLACE, PATENT, DRAINING TO GRAVITY. THIS RN AND LARD MAKER TRIED TO GET PT UP TO BSC FOR BM, WHEN PT UP TO EGDE OF BED, SHE STATED THAT SHE WAS NOT GOING TO BE ABLE TO STAND. GOT PT ON BEDPAN, SHE WAS NOT ABLE TO HAVE BM. NO OTHER EVENTS, WILL REPORT TO ONCOMING RN.
[2023-02-09 12:25] LABS: Hematocrit 21.4 % (33.0-51.0); Hemoglobin 7.2 g/dL (11.5-16.0)
--- NOTE | 2023-02-09 13:48 | NUR ---
Pt resting in bed upon arrival. Pt reports living at home with her . She reports at baseline she ambulates around the house with a walker. When she is at the grocery store she uses an electric riding cart or stays in the care if one is unavailable. She reports assists her with bathing and dressing. Brief review of plan of care. Offered therapeutic listening as she reports her biggest concern is dying. Continued therapeutic listening. Pt reports being tired and is agreeable for this RN to return tomorrow. Spoke with Primary RN Becca and discussed case. Palliative Care will remain available
--- NOTE | 2023-02-09 15:32 | NUR ---
CARE NOTE AT APPROX. 1515 PT DENIED FEELINGS OF NAUSEA, THIS RN ASKED IF PT WOULD BE WILLING TO DRINK A BROWN COW DUE TO INABILITY TO HAVE A BM AND PT DECLINED. BOWEL CARE WAS PROVIDED PER EMAR BY THIS RN, WILL CONTINUE TO ENCOURAGE APPROPRIATE BOWEL CARE PER PROTOCOL/EMAR. PT NOW APPEARS TO BE SLEEPING COMFORTABLY, CALL LIGHT W/IN REACH.
--- NOTE | 2023-02-09 17:24 | NUR ---
SHIFT SUMMARY PT IS ALERT AND ORIENTED X 4, SHE IS ABLE TO MAKE HER NEEDS KNOWN. HR HAS BEEN SR 80-90'S PER TELE MONITORING, BP STABLE, SP02 MAINTAINED >95% VIA ROOM AIR. SHE HAS DENIED CHEST PAIN/PRESSURE, SHE HAS DENIED FEELINGS OF SOB. NAUSEA/VOMITTING REPORTED EARLY IN SHIFT WHEN PT WAS WORKING W/ OCCUPATIONAL THERAPIST, PLEASE SEE PREVIOUS NOTE. NAUSEA SUBSIDED W/ ZOFRAN BUT PT HAS HAD MINIMAL PO INTAKE DESPITE DENIAL OF NAUSEA/ENCOURAGEMENT TO TAKE FOOD TOLERATED. PT REPORTED NOT HAVING A BM SINCE PRIOR TO ADMISSION. PER PT REPORT, SHE ONLY HAS BM'S 1X PER WEEK. SHE DENIES ABD DISCOMFORT. BOWEL CARE HAS BEEN PROVIDED PER EMAR AND PT HAS BEEN ENCOURAGED TO DRINK A BROWN COW BUT HAS DECLINED. PAIN REPORTED 9/10 IN LEFT HIP/LEG WELL CHRONIC BACK PAIN, PLEASE SEE EMAR FOR PAIN MANAGEMENT. PT EDUCATED REGARDING PAIN MANAGEMENT AND NEED TO ASK FOR MEDICATION WHEN IN PAIN, SHE WAS EDUCATED BY THIS RN THAT NARCOTICS ARE NOT SCHEDULED MEDICATIONS. NO COUGH NOTED. PT HAS BEEN SOMNOLENT FOR MAJORITY OF SHIFT. PT'S MEENA WAS AT BEDSIDE THIS AFTERNOON. REDNESS ON COCCYX NOTED, MEPILEX DRESSING APPLIED BY THIS RN AND HIPS FLOATED ON PILLOWS BILATERALLY FOR MAJORITY OF SHIFT. PT NOW APPEARS TO BE SLEEPING COMFORTABLY, CALL LIGHT IS W/IN REACH.
[2023-02-10] VITALS (21 sets, daily range): BP systolic 93–129; BP diastolic 47–71
[2023-02-10 03:16] LABS: Hematocrit 18.6 % (33.0-51.0); Hemoglobin 6.2 g/dL (11.5-16.0); IMMATURE RETIC FRACTION 37.8 % (2.3-16.0); RETIC HGB EQUIVALENT 37.6 pg (28.20-36.60); RETICULOCYTE ABSOLUTE 0.0431 M/mm3 (0.0200-0.1100); RETICULOCYTE COUNT PERCENT 2.19 % (0.50-2.50)
[2023-02-10 03:37] LABS: Albumin/Globulin Ratio 0.7 (0.8-1.8); Bilirubin, Total 0.1 mg/dL (0.1-1.0); Bun/Creatinine Ratio 35.8 (12.0-20.0); Calcium, Blood 7.9 mg/dL (8.5-10.1); Creatinine, Blood 1.9 mg/dL (0.40-1.00); Globulin, Blood 2.8 g/dL (2.2-4.0); Potassium, Blood 3.8 mmol/L (3.5-5.5); Total Protein, Blood 4.8 g/dL (6.4-8.2)
--- NOTE | 2023-02-10 04:53 | NUR ---
SHIFT SUMMARY A&Ox4, CALLS AND COMMUNICATES NEEDS. PT NOT COOPERATIVE WITH NEURO ASSESSMENT, WOULD NOT ANSWER QUESTIONS. PT WOULD BREIFLY LOOK AT RNWHEN TALKED TO, THEN WOULD CLOSE HER EYES. EQUAL FOREST FIRE FIGHTERS DISPATCHER STRENGTHS AND PERRLA PRESENT. WHEN ASKED IF SHE WAS IN PAIN, PT SHOOK HEAD "NO". BP SOFT AT TIMES, ASYMPTOMATIC, DENIES CP/PRESSURE. SpO2> 92% RA, DENIES SOB. SALAZAR CATH IN PLACE, PATENT, DRAINING TO GRAVITY. NO BM THIS SHIFT. NO S/S OF BLEEDING. NO N/V. NO OTHER EVENTS, WILL REPORT TO ONCOMING RN.
[2023-02-10 10:59] LABS: Hematocrit 20.3 % (33.0-51.0); Hemoglobin 6.8 g/dL (11.5-16.0)
--- NOTE | 2023-02-10 15:38 | NUR ---
Spiritual care vsiit conducted. Upon receiving a referral for spiritual care, I visited the patient. She tells me about her frustration with being away from home and her . She states that she is mostly feeling lonely. I sit for quite some time with her. She explains about the ups and downs of her stay in the hospital. She brings out a book that she wrote to capture her life for her grandchildren. She starts from the beginning and reads several pages then she would skip around to some of her favorite poems and stories. She is very gifted and seemed encouraged to have someone to share it with. I provided therapeutic listening and prayer. Patient voices her appreciation for the time and prayer. I will continue to remain available to patient and family.
[2023-02-10 18:01] LABS: Hematocrit 25.3 % (33.0-51.0); Hemoglobin 8.7 g/dL (11.5-16.0)
--- NOTE | 2023-02-10 18:29 | NUR ---
SHIFT SUMMARY ALERT, ORIENTED, PLEASANT, COOPERATIVE. HEAVILY CONVERSATIONAL WITH ANYONE WHO ENTERS ROOM. SOMEWHAT FEARFUL OF MOVEMENT AND DOES NOT SEEM TO DO MUCH FOR HERSELF SHE COULD. ENCOURAGED PATIENT TO DO MUCH FOR HERSELF POSSIBLE WHILE STILL MAKING HER NEEDS KNOWN TO STAFF. SPOUSE VISITED FOR A COUPLE HOURS IN AM. ROOM AIR. NSR FOR MOST OF DAY. 1 HOUR 40 MINUTES OF AFIB DURING AFTERNOON. CONVERTED BACK TO NSR SPONTANEOUSLY. NO CHANGES TO MEDICATIONS PER DR ELLIS. SBP STABLE 100-130. COMPLETED TRANSFUSION OF 2 UNITS PRBC. PATIENT TOLERATED WELL. H&H RESPONDED WELL. MEDICATED FOR MUSCULOSKELETAL PAIN TO LEFT LEG. RELUCTANT TO WORK WITH PHYSICAL THERAPY. COMPLETED SOME MOVEMENT AND EXERCISES IN THE BED. INCREASED BOWEL CARE PER EMAR, BM THIS SHIFT. STARTED BLADDER TRAINING SALAZAR CATHETER, CLAMPING FOR 2 HOURS, UNCLAMPED FOR 30 MINUTES. PLAN TO DC SALAZAR IN AM. PLAN TO GET UP TO CHAIR WITH PHYSICAL THERAPY TOMORROW 02/11/23.
[2023-02-10 18:45] LABS: International Normalized Ratio 1.1; Prothrombin Time Results 11.5 Sec (9.7-11.5)
[2023-02-11] VITALS (13 sets, daily range): BP systolic 97–149; BP diastolic 47–91
[2023-02-11 00:23] LABS: Hematocrit 22.4 % (33.0-51.0); Hemoglobin 7.4 g/dL (11.5-16.0)
[2023-02-11 04:21] LABS: Hematocrit 23.8 % (33.0-51.0); Hemoglobin 7.9 g/dL (11.5-16.0)
--- NOTE | 2023-02-11 04:55 | NUR ---
SHIFT SUMMARY PT A&Ox4, CALLS AND COMMUNICATES NEEDS APPROPRIATELY. SLOW TO RESPOND TO QUESTIONS. BP SOFT AT TIMES, ASYMPTOMATIC, DENIES CP/PRESSURE. SB/SR 40-70's, w/ PACs. SpO2> 92% RA, DENIES SOB. SALAZAR CATH IN PLACE, PATENT, DRAINING TO GRAVITY. BLADDER TRAINING DONE THROUGHOUT SHIFT, CLAMPED FOR TWO HOURS OR UNTIL PT FELT URGE TO VOID, UNCLAMPED FOR 30 MINUTES. PT EXRESSED URGE TO VOID TWICE WHILE SALAZAR WAS CLAMPED. SHE IS HOPEFUL ABOUT GETTING SALAZAR OUT TODAY. PT WITH BOTH INCONTINENT AND CONTINENT BM THIS SHIFT. NO S/S OF BLEEDING. NO N/V. FOR THE MOST PART, PT DENIED PAIN WHEN ASKED. WHEN PT DID C/O OF PAIN, PROVIDED REPOSITIONING, WARM K-PAD, AND MEDICATED PER EMAR. NO OTHER EVENTS, WILL REPORT TO ONCOMING RN.
[2023-02-11 04:57] LABS: Albumin/Globulin Ratio 0.7 (0.8-1.8); Bilirubin, Total 0.4 mg/dL (0.1-1.0); Bun/Creatinine Ratio 33.9 (12.0-20.0); Calcium, Blood 8.1 mg/dL (8.5-10.1); Creatinine, Blood 1.68 mg/dL (0.40-1.00); Globulin, Blood 2.8 g/dL (2.2-4.0); Potassium, Blood 3.7 mmol/L (3.5-5.5); Total Protein, Blood 4.8 g/dL (6.4-8.2)
--- NOTE | 2023-02-11 09:43 | NUR ---
CARE ASSUMPTION this rn assumed care at 0700. vital signs stable. tele sr. patient is alert and oriented x4. perrla. patient reports no pain, chest pain/pressure, or shorntess of breath. patient reports pain on left leg when standing, md at bedside and explained that it is nerve pain and encourgaed patient to increase mobility as her pain allows. see shift assessment for further detials. patient on a waitlist for [facility] for GI. davis catheter removed. md in room and discussed plan of care. call light within reach
--- NOTE | 2023-02-11 11:33 | NUR ---
Spiritual care visit conducted. PAtient is lying in bed and alert. She sees that I brought my guitar into the room and immediately asks me to play. I played a song I wrote. She asked if I had been noodling around in her heart because it touched her. Then she read a poem she wrote and I remind her of the beautiful gift that she has. I told a story and played another song and patient was deeply moved and was tearful she shared about how much it meant to her. I provided prayer for her and she voiced much appreciation and stated that it gave her great comfort. I will continue to remain available.
[2023-02-11 11:45] LABS: Hematocrit 24.4 % (33.0-51.0); Hemoglobin 8.3 g/dL (11.5-16.0)
--- NOTE | 2023-02-11 17:52 | NUR ---
shift summary patient neuro remains intact. vital signs stable. no acute changes. plan of care up to date. call light within reach.
[2023-02-11 23:17] LABS: Hematocrit 24.4 % (33.0-51.0); Hemoglobin 8.2 g/dL (11.5-16.0)
[2023-02-12] VITALS (7 sets, daily range): BP systolic 96–150; BP diastolic 52–107
--- NOTE | 2023-02-12 04:07 | NUR ---
SHIFT SUMMARY PT IS A&OX4 AND CALLS FOR HER NEEDS. THE PT HAS BEEN ENCOURAGED TO TRY DOING MORE FOR HERSELF AND WE HAVE PROMOTED INDEPENDENCE BECAUSE SHE IS WANTING TO GO BACK HOME TO HER . ON TELE SHE HAS BEEN SB/SR 40'S-60 S, AND BP STABLE. SHE DENIES ANY ANGINA OR SOB. PT IS ON ROOM AIR WITH SP02 >90%. NO ACUTE EVENTS OVER NIGHT. SEE NOTES FOR ANY UPDATES.
[2023-02-12 04:20] LABS: Albumin, Blood 2.1 g/dL (3.4-5.0); Albumin/Globulin Ratio 0.8 (0.8-1.8); Bilirubin, Total 0.2 mg/dL (0.1-1.0); Bun/Creatinine Ratio 30.3 (12.0-20.0); Calcium, Blood 8.2 mg/dL (8.5-10.1); Creatinine, Blood 1.42 mg/dL (0.40-1.00); Globulin, Blood 2.8 g/dL (2.2-4.0); Potassium, Blood 3.5 mmol/L (3.5-5.5); Total Protein, Blood 4.9 g/dL (6.4-8.2)
--- NOTE | 2023-02-12 04:49 | NUR ---
UPDATE ASSUMING CARE OF PT. THIS RN AGREES WITH PRIOR RN'S ASSESSMENTS.
[2023-02-12 05:23] LABS: Hematocrit 23.7 % (33.0-51.0); Hemoglobin 7.9 g/dL (11.5-16.0)
--- NOTE | 2023-02-12 06:44 | NUR ---
SHIFT SUMMARY PT ALERT AND ORIENTED X 4. HR STABLE. BP STABLE. NO CP OR PRESSURE REPORTED. OXYGEN SATURATION MAINTAINED ABOVE 92% ON RA. HGB STABLE WITH AM LABS. NO ACUTE CHANGES T/O SHIFT. CALL LIGHT WITHIN REACH.
--- NOTE | 2023-02-12 08:30 | NUR ---
PT'S HR IS 48 THIS AM DURING MORNING ASSESSMENT, DECISION WAS MADE TO HOLD METOPROLOL, DR ELLIS IS MADE AWARE
--- NOTE | 2023-02-12 11:50 | NUR ---
PT HAD A LARGE BM, SHE REMAINS SINUS LESLIE ON MONITOR. SHE IS NOW SLEEPING
--- NOTE | 2023-02-12 12:41 | NUR ---
REPORT TO VICKEY
--- NOTE | 2023-02-12 12:54 | NUR ---
VICKEY UPDATED THAT PT HAD A BM THAT WAS FREE OF MELENA, DR ELLIS IS ALSO AWARE
--- NOTE | 2023-02-12 13:13 | NUR ---
ARRIVES TO SURGICAL UNIT. PLEASANT & TALKATIVE. TELE IN PLACE. CHICKEN BROTH GIVEN PER PT REQUEST. DENIES FURTHER NEEDS.
--- NOTE | 2023-02-12 19:57 | NUR ---
REPORT RECEIVED FROM YINA HURD AT ABOUT 1630. PT IS A/O, USING CALL LIGHT. WITH ROUNDING REPORTS NO NEEDS AT THIS TIME. EVENING PROTONIX GIVEN AND BLOOD SUGAR CHECKED. NO ACUTE CONCERNS, REPORT PASSED TO BEE RN
[2023-02-13 03:06] VITALS: BP 135/57
--- NOTE | 2023-02-13 04:25 | NUR ---
SHIFT SUMMARY NO ACUTE CHANGES TO REPORT OVERNIGHT, PT HAS RESTED T/O THE SHIFT. INTERMITTENT PAIN RELIEVED WITH MEDS PER EMAR. PT INCONTINENT OF URINE. SWELLING STILL PRESENT TO BLE. IV ANTIBIOTICS INFUSED. ASSESSMENT UNCHANGED. BED IN LOWEST POSITION, CALL LIGHT WITHIN REACH.
[2023-02-13 06:44] LABS: Albumin, Blood 2.1 g/dL (3.4-5.0); Albumin/Globulin Ratio 0.8 (0.8-1.8); Bilirubin, Total 0.3 mg/dL (0.1-1.0); Bun/Creatinine Ratio 28.2 (12.0-20.0); Calcium, Blood 8.1 mg/dL (8.5-10.1); Creatinine, Blood 1.17 mg/dL (0.40-1.00); Globulin, Blood 2.8 g/dL (2.2-4.0); Potassium, Blood 3.7 mmol/L (3.5-5.5); Total Protein, Blood 4.9 g/dL (6.4-8.2)
[2023-02-13 07:38] VITALS: BP 139/62
--- NOTE | 2023-02-13 10:45 | NUR ---
DR. LOZOYA NOTIFIED OF HR LESS THAN 55 DOWN TO 42. METOPROLOL HELD THIS AM. PT IS ASYMPTOMATIC.
[2023-02-13 12:04] LABS: Hematocrit 25.2 % (33.0-51.0); Hemoglobin 8.2 g/dL (11.5-16.0)
[2023-02-13 14:59] VITALS: BP 135/46
--- NOTE | 2023-02-13 18:25 | NUR ---
SHIFT SUMMARY PT IS WAITING FOR COBRA TRANSFER FOR GI CONSULT. PT HAS HAD MINIMAL INTAKE THIS SHIFT, SHE IS TOLERATING WATER AND BROTH. SHE REPORTS FOOD MAKES HER NAUSEATED; PT DECLINED ZOFRAN BEFORE MEALS. PT IS COMPLAINING OF L LEG PAIN AND BACK PAIN, TYLENOL GIVEN PER PT REQUEST. PT RESTING IN BED, CALL LIGHT WITHIN REACH.
--- NOTE | 2023-02-13 18:30 | NUR ---
PER FIELD HAND PT TRANSITIONED INTO AFIB FOR 1/2 HOUR AND THEN TRANSITIONED BACK TO NSR. PT ASYMPTOMATIC.
[2023-02-13 19:04] VITALS: BP 143/63
[2023-02-14 05:28] LABS: Albumin, Blood 2.1 g/dL (3.4-5.0); Albumin/Globulin Ratio 0.7 (0.8-1.8); Bilirubin, Total 0.3 mg/dL (0.1-1.0); Bun/Creatinine Ratio 22.6 (12.0-20.0); Creatinine, Blood 1.15 mg/dL (0.40-1.00); Globulin, Blood 2.9 g/dL (2.2-4.0); Potassium, Blood 4.1 mmol/L (3.5-5.5)
[2023-02-14 05:31] VITALS: BP 130/71
--- NOTE | 2023-02-14 07:17 | NUR ---
BRADYCARDIA CALL FROM MEDICAL SERVICE TECHNICIAN NABEEL JUST SHORTLY BEFORE SHIFT CHANGE AT 0630, THAT PT HR WAS TOUCHING DOWN IN THE UPPER 30'S. 39 AND 37, PT SINUS LESLIE. HR ONLY SUSTAINED BRIEFLY IN THE UPPER 30'S BEFORE RETURNING TO THE LOW TO MID 40'S. PT APPEARED SLEEPING IN BED DURING EPISODE WITHOUT DISTRESS. NO COMPLAINTS OF CHEST PAIN T/O THE NIGHT. PER MEDICAL SERVICE TECHNICIAN PT HR HAS BEEN IN THE 40'S DURING DAYSHIFT 02/13/23, AND T/O THE NIGHT 02/14/23. IT IS NOTED IN DR'S NOTES THAT SHE HAS BEEN BRADYCARDIC. DR. TALLEY CALLED AND NOTIFIED OF PT BRADYCARDIA THIS AM. HE STATES TO HOLD AM METOPROLOL DOSE, AND THAT HE WILL ROUND ON PT LATER TODAY. DAYSHIFT RN NOTIFIED. CONDITIONER TUMBLER AWARE.
--- NOTE | 2023-02-14 07:25 | NUR ---
SHIFT SUMMARY PT HAS RESTED OFF AND ON T/O THE NIGHT, MEDICATED FOR PAIN PRN PER EMAR. PT CONTINUES TO HAVE EDEMA TO BLE, LEGS FLOATED ON PILLOWS. PUREWICK IN PLACE WITH ADEQUATE URINE OUTPUT. PT HAS BEEN BRADYCARDIC THIS SHIFT, BUT ASYMPTOMATIC, PROVIDER MADE AWARE, PLEASE SEE PRIOR NURSES NOTES. NO OTHER CHANGES TO REPORT. STILL AWAITING COBRA TRANSFER WITH NO BEDS AVALIBLE AT THIS TIME. BED IN LOWEST POSITION, CALL LIGHT WITHIN REACH.
[2023-02-14 07:33] VITALS: BP 143/60
[2023-02-14 08:28] LABS: BASOPHILS ABSOLUTE AUTO 0.04 K/mm3 (0.00-0.23); BASOPHILS PERCENT AUTO 0 % (0-2); EOSINOPHILS ABSOLUTE AUTO 0.26 K/mm3 (0.00-0.68); EOSINOPHILS PERCENT AUTO 3 % (0-6); Hemoglobin 8.2 g/dL (11.5-16.0); IMMATURE GRAN ABSOLUTE AUTO 0.07 K/mm3 (0.00-0.10); IMMATURE GRAN PERCENT AUTO 1 % (0-1); LYMPHOCYTES ABSOLUTE AUTO 1.37 K/mm3 (0.84-5.20); LYMPHOCYTES PERCENT AUTO 14 % (21-46); MONOCYTES ABSOLUTE AUTO 0.83 K/mm3 (0.16-1.47); MONOCYTES PERCENT AUTO 9 % (4-13); Mean Corpuscular HGB 30.6 pg (26.0-34.0); Mean Corpuscular HGB Conc 32.8 g/dL (31.5-36.5); Mean Corpuscular Volume 93 fL (80-100); NEUTROPHILS ABSOLUTE AUTO 7.12 K/mm3 (1.96-9.15); NEUTROPHILS PERCENT AUTO 74 % (41-73); Platelet Count 288 K/mm3 (150-400); RDW Coefficient Variation 15.8 % (11.7-14.2); RDW Standard Deviation 48.8 fL (35.1-46.3); Red Blood Cell Count 2.68 M/mm3 (3.80-5.20); White Blood Cell Count 9.69 K/mm3 (4.00-11.30)
[2023-02-14 15:19] VITALS: BP 121/52
--- NOTE | 2023-02-14 17:05 | NUR ---
SHIFT SUMMARY PT A&OX4, VSS/RA, TELE SINUS LESLIE(DR AWARE/AM METOPROLOL HELD) CURRENTLY 57 BPM PER TELE, CBG CNI, SIT/STAND LIFT TO CHAIR, PHYSICAL THERAPY EXERCISES ENCOURAGED, VOIDING WELL/PUREWICK IN PLACE, PAIN MANAGED WITH TYLENOL. WILL REPORT TO ONCOMING NOC RN.
[2023-02-14 20:23] VITALS: BP 124/56
[2023-02-15 04:57] VITALS: BP 125/57
[2023-02-15 05:06] LABS: BASOPHILS ABSOLUTE AUTO 0.02 K/mm3 (0.00-0.23); BASOPHILS PERCENT AUTO 0 % (0-2); EOSINOPHILS ABSOLUTE AUTO 0.25 K/mm3 (0.00-0.68); EOSINOPHILS PERCENT AUTO 3 % (0-6); Hematocrit 24.8 % (33.0-51.0); Hemoglobin 8.2 g/dL (11.5-16.0); IMMATURE GRAN ABSOLUTE AUTO 0.05 K/mm3 (0.00-0.10); IMMATURE GRAN PERCENT AUTO 1 % (0-1); LYMPHOCYTES ABSOLUTE AUTO 1.32 K/mm3 (0.84-5.20); LYMPHOCYTES PERCENT AUTO 16 % (21-46); MONOCYTES ABSOLUTE AUTO 0.92 K/mm3 (0.16-1.47); MONOCYTES PERCENT AUTO 11 % (4-13); Mean Corpuscular HGB 30.6 pg (26.0-34.0); Mean Corpuscular HGB Conc 33.1 g/dL (31.5-36.5); Mean Corpuscular Volume 93 fL (80-100); Mean Platelet Volume 10.5 fL (9.1-12.4); NEUTROPHILS ABSOLUTE AUTO 5.81 K/mm3 (1.96-9.15); NEUTROPHILS PERCENT AUTO 69 % (41-73); Platelet Count 297 K/mm3 (150-400); RDW Coefficient Variation 15.9 % (11.7-14.2); RDW Standard Deviation 48.4 fL (35.1-46.3); Red Blood Cell Count 2.68 M/mm3 (3.80-5.20); White Blood Cell Count 8.37 K/mm3 (4.00-11.30)
[2023-02-15 05:38] LABS: Albumin, Blood 2.1 g/dL (3.4-5.0); Albumin/Globulin Ratio 0.8 (0.8-1.8); Bilirubin, Total 0.2 mg/dL (0.1-1.0); Bun/Creatinine Ratio 22.1 (12.0-20.0); Creatinine, Blood 0.99 mg/dL (0.40-1.00); Globulin, Blood 2.8 g/dL (2.2-4.0); Magnesium, Blood 1.9 mg/dL (1.6-2.4); Total Protein, Blood 4.9 g/dL (6.4-8.2)
--- NOTE | 2023-02-15 06:22 | NUR ---
summary teletype installer reported pt heart rate elevated to 135 for approx 30 sec then back down to 50's.pt asymptomatic. day rn agrees to speak with hospitalist on rounding and ask if need cardiology cx.
[2023-02-15 07:39] VITALS: BP 110/57
--- NOTE | 2023-02-15 07:42 | NUR ---
summary pts vss. no further episodes.received iv bolus .
--- NOTE | 2023-02-15 15:24 | NUR ---
SHIFT SUMMARY: NO SIGNIFICANT CHANGES DURING SHIFT. PATIENT IS A&OX4. VS ARE WNL AND IS ON RA. PAIN IS MANAGED WITH PO TYLENOL. SHE IS A 2 PERSON MODERATE ASSIST WITH GAIT BELT AND STAND/PIVIOT. PATIENT NEEDS VERBAL ENCOURAGEMENT THAT SHE IS ABLE TO AMBULATE AND TO STAND TALL THAT WAY SHE IS ABLE TO BUILD HER STRENGTH/CONFIDENCE. PATIENT IS TOLERATING PO INTAKE AND DENIES NAUSEA OR VOMITING. PATIENT IS INCONTINENT WITH ATTENDS IN PLACE AND CHANGED PRN AND SHE ALSO HAD A BM TODAY THAT WAS BROWN AND FORMED. PATIENT IS SITTING UP IN THE RECLINER WITH SPIRITUAL CARE AT BEDSIDE AND CALL LIGHT WITHIN REACH. THE PLAN IS TO HAVE DR. MYLES WHO IS ROADSIDE MECHANIC TOMORROW TO SEE IF THIS PATIENT REQUIRES TO HAVE AN UPPER SCOPE DONE. PATIENT WILL BE ON CLEARS FROM MIDNIGHT ON TONIGHT.
[2023-02-15 15:40] VITALS: BP 129/64
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
[2023-02-15 19:48] VITALS: BP 123/56
[2023-02-16] VITALS (9 sets, daily range): BP systolic 119–147; BP diastolic 51–93
[2023-02-16 05:07] LABS: BASOPHILS ABSOLUTE AUTO 0.04 K/mm3 (0.00-0.23); BASOPHILS PERCENT AUTO 1 % (0-2); EOSINOPHILS ABSOLUTE AUTO 0.14 K/mm3 (0.00-0.68); EOSINOPHILS PERCENT AUTO 2 % (0-6); Hematocrit 24.5 % (33.0-51.0); Hemoglobin 8.2 g/dL (11.5-16.0); IMMATURE GRAN ABSOLUTE AUTO 0.03 K/mm3 (0.00-0.10); IMMATURE GRAN PERCENT AUTO 0 % (0-1); LYMPHOCYTES ABSOLUTE AUTO 0.83 K/mm3 (0.84-5.20); LYMPHOCYTES PERCENT AUTO 10 % (21-46); MONOCYTES ABSOLUTE AUTO 0.84 K/mm3 (0.16-1.47); MONOCYTES PERCENT AUTO 10 % (4-13); Mean Corpuscular HGB 31.2 pg (26.0-34.0); Mean Corpuscular HGB Conc 33.5 g/dL (31.5-36.5); Mean Corpuscular Volume 93 fL (80-100); Mean Platelet Volume 10.6 fL (9.1-12.4); NEUTROPHILS ABSOLUTE AUTO 6.16 K/mm3 (1.96-9.15); NEUTROPHILS PERCENT AUTO 77 % (41-73); Platelet Count 313 K/mm3 (150-400); RDW Coefficient Variation 16.3 % (11.7-14.2); RDW Standard Deviation 50.8 fL (35.1-46.3); Red Blood Cell Count 2.63 M/mm3 (3.80-5.20); White Blood Cell Count 8.04 K/mm3 (4.00-11.30)
--- NOTE | 2023-02-16 05:08 | NUR ---
SHIFT SUMMARY VSS, TELE READS SR 64. NO AFIB NOTED T/O THE NIGHT. PT SLEPT WELL T/O THE NIGHT. TOLLERATED BEING REPOSTIIONED ONCE. HAS BEEN NPO SINCE 0000 IN ANTICIPATION FOR GI SCOPE TODAY; MAITENENCE FLUIDS INFUSING. MEDICATED FOR PAIN ONCE WITH TYLENOL. PUREWICK REMAINS IN PLACE, YELLOW URINE OUTPUT. NO ACUTE EVENTS NOTED. PLAN TO MONITOR LABS AND AWAIT SCOPE RESULTS. THE PATIENT IS CURRENTLY RESTING, IN NO DISTRESS, CALL LIGHT IN REACH
[2023-02-16 06:15] LABS: Albumin, Blood 2.1 g/dL (3.4-5.0); Albumin/Globulin Ratio 0.8 (0.8-1.8); Bilirubin, Total 0.2 mg/dL (0.1-1.0); Bun/Creatinine Ratio 15.7 (12.0-20.0); Creatinine, Blood 1.08 mg/dL (0.40-1.00); Globulin, Blood 2.8 g/dL (2.2-4.0); Total Protein, Blood 4.9 g/dL (6.4-8.2)
--- NOTE | 2023-02-16 16:00 | NUR ---
Arrived by danielle to Day Surgery. History, Chart, Medications and Allergies reviewed before start of procedure. Patient confirms NPO status and agrees with scheduled surgery. Pre-Op teaching done. Pt verbalizes understanding.
--- NOTE | 2023-02-16 16:38 | NUR ---
02/16/23 1638 Sharath Bell HISTORY, CHART, MEDICATIONS AND ALLERGIES REVIEWED BEFORE START OF PROCEDURE. PATIENT CONFIRMS NPO STATUS AND AGREES WITH SCHEDULED PROCEDURE. 3-LEAD EKG REVIEWED WITH PHYSICIAN PRIOR TO START OF PROCEDURE. MONITOR INTACT WITH CONTINUOUS PULSE OXIMETRY,CAPNOGRAPHY, 3-LEAD EKG, INTERMITTENT BP. SUPPLEMENTAL O2 TO BE TITRATED THROUGHOUT PROCEDURE TO MAINTAIN O2 SATURATION ABOVE 90%. PATIENT DETERMINED TO BE ASA APPROPRIATE FOR PROPOFOL SEDATION PRIOR TO START OF PROCEDURE BY DR. MYLES. Bite Block Placed.
--- NOTE | 2023-02-16 19:27 | NUR ---
SHIFT SUMMARY ALERT, ORIENTED, PLEASANT, COOPERATIVE, SOMEWHAT NEEDY AND REQUIRES ENCOURAGEMENT TO DO THINGS FOR HERSELF. 2 PERSON ASSIST UP WITH FWW AND GAIT BELT TO TRANSFER FROM BED TO RECLINER. MEDICATED FOR PAIN WITH PRN TYLENOL. NPO FOR GI CONSULT AND POSSIBLE EGD WITH DR MYLES. VOIDING VIA PUREWICK, ATTENDS AND PLACE. TELE NSR 60-80 MOST OF DAY. TAKEN TO ENDO SUITE AT 1600, WENT INTO AFIB RVR RATE 110-140. PATIENT RETURNED TO ROOM. NOTIFIED HOSP TEAM, METOPROLOL WAS ORDERED. REMAINED IN AFIB WITH RATE 110-120. WILL CONTINUE TO MONITOR AND ATTEMPT EGD AGAIN TOMORROW. PATIENT TOLERATED WATER AND CHICKEN BROTH FOR DINNER. WATER AFTER MIDNIGHT, NPO AFTER 1200 NOON TOMORROW. REPROT GIVEN TO SURGERY ATTENDANT RN.
[2023-02-17] VITALS (8 sets, daily range): BP systolic 118–156; BP diastolic 53–81
--- NOTE | 2023-02-17 05:12 | NUR ---
SHIFT SUMMARY VSS, TELE READS SR 63. PT CONVERTED FROM AFIB TO SR AT THE BEGINNING OF SHIFT. NO ACUTE EVENTS NOTED T/O THE NIGHT. PT SLEPT ON AND OFF, MEDICATED FOR PAIN WITH TYLENOL. REPOSITIONED T/O THE NIGHT. HAS BEEN NPO EXCEPT FOR WATER AFTER 0000. PT ABLE TO DRINK WATER UNTIL NOON TODAY IN PREPERATION FOR EGD. PURE WICK REMAINS IN PLACE, GOOD URINE OUTPUT NOTED. THE PATIENT IS CURRENTLY RESTING IN BED, IN NO DISTRESS, CALL LIGHT IN REACH
[2023-02-17 07:48] LABS: BASOPHILS ABSOLUTE AUTO 0.03 K/mm3 (0.00-0.23); BASOPHILS PERCENT AUTO 1 % (0-2); EOSINOPHILS ABSOLUTE AUTO 0.09 K/mm3 (0.00-0.68); EOSINOPHILS PERCENT AUTO 2 % (0-6); Hematocrit 24.1 % (33.0-51.0); Hemoglobin 7.8 g/dL (11.5-16.0); IMMATURE GRAN ABSOLUTE AUTO 0.01 K/mm3 (0.00-0.10); IMMATURE GRAN PERCENT AUTO 0 % (0-1); LYMPHOCYTES ABSOLUTE AUTO 0.73 K/mm3 (0.84-5.20); LYMPHOCYTES PERCENT AUTO 16 % (21-46); MONOCYTES PERCENT AUTO 19 % (4-13); Mean Corpuscular HGB 30.5 pg (26.0-34.0); Mean Corpuscular HGB Conc 32.4 g/dL (31.5-36.5); Mean Corpuscular Volume 94 fL (80-100); Mean Platelet Volume 10.4 fL (9.1-12.4); NEUTROPHILS ABSOLUTE AUTO 2.92 K/mm3 (1.96-9.15); NEUTROPHILS PERCENT AUTO 63 % (41-73); Platelet Count 276 K/mm3 (150-400); RDW Coefficient Variation 16.8 % (11.7-14.2); RDW Standard Deviation 53.1 fL (35.1-46.3); Red Blood Cell Count 2.56 M/mm3 (3.80-5.20); White Blood Cell Count 4.68 K/mm3 (4.00-11.30)
[2023-02-17 08:00] LABS: Bun/Creatinine Ratio 13.6 (12.0-20.0); Calcium, Blood 8.2 mg/dL (8.5-10.1); Creatinine, Blood 1.03 mg/dL (0.40-1.00)
[2023-02-18 02:28] VITALS: BP 122/63
--- NOTE | 2023-02-18 06:28 | NUR ---
TELE DESK CALLED THIS RN TO STATE THE PT HAD CONVERTED TO A-FIB AT 0230, BUT WAS RATE CONTROLLED IN THE 80'S AND 90'S. TELE DESK CALLED AGAIN AT 0300 TO REPORT THAT THE PT CONVERTED BACK TO SB WITH A RATE OF 39. PT HAD NO COMPLAINTS THROUGHOUT THE SHIFT. TYLENOL GIVEN FOR PAIN THIS SHIFT AND PT WAS ABLE TO REST FOR MOST OF THE SHIFT.
[2023-02-18 07:33] VITALS: BP 133/62
[2023-02-18 10:25] LABS: BASOPHILS ABSOLUTE AUTO 0.04 K/mm3 (0.00-0.23); BASOPHILS PERCENT AUTO 1 % (0-2); EOSINOPHILS PERCENT AUTO 3 % (0-6); Hematocrit 28.8 % (33.0-51.0); Hemoglobin 9.2 g/dL (11.5-16.0); IMMATURE GRAN ABSOLUTE AUTO 0.01 K/mm3 (0.00-0.10); IMMATURE GRAN PERCENT AUTO 0 % (0-1); LYMPHOCYTES ABSOLUTE AUTO 0.84 K/mm3 (0.84-5.20); LYMPHOCYTES PERCENT AUTO 21 % (21-46); MONOCYTES ABSOLUTE AUTO 0.83 K/mm3 (0.16-1.47); MONOCYTES PERCENT AUTO 21 % (4-13); Mean Corpuscular HGB 30.7 pg (26.0-34.0); Mean Corpuscular HGB Conc 31.9 g/dL (31.5-36.5); Mean Corpuscular Volume 96 fL (80-100); Mean Platelet Volume 10.6 fL (9.1-12.4); NEUTROPHILS ABSOLUTE AUTO 2.19 K/mm3 (1.96-9.15); NEUTROPHILS PERCENT AUTO 55 % (41-73); Platelet Count 293 K/mm3 (150-400); RDW Coefficient Variation 16.5 % (11.7-14.2); RDW Standard Deviation 55.4 fL (35.1-46.3); White Blood Cell Count 4.01 K/mm3 (4.00-11.30)
[2023-02-18 10:49] LABS: Bun/Creatinine Ratio 14.4 (12.0-20.0); Calcium, Blood 8.1 mg/dL (8.5-10.1); Creatinine, Blood 0.97 mg/dL (0.40-1.00); Potassium, Blood 4.1 mmol/L (3.5-5.5)
[2023-02-18 10:57] LABS: Influenza A, PCR NEGATIVE (NEGATIVE); Influenza B, PCR NEGATIVE (NEGATIVE); Resp Syncytial Virus, PCR NEGATIVE (NEGATIVE)
[2023-02-18 10:58] LABS: SARS-Cov-2 (COVID-19) PCR, MMC POSITIVE (NEGATIVE)
[2023-02-18 13:10] LABS: Hematocrit 28.4 % (33.0-51.0); Hemoglobin 9.2 g/dL (11.5-16.0)
[2023-02-18 14:42] VITALS: BP 123/52
--- NOTE | 2023-02-18 18:59 | NUR ---
SHIFT SUMMARY PT A&OX4, VSS/RA, [place] PO, STAND/PIVOT WITH 2 PP HEAVY TRANSFER, VOIDING WELL/PUREWICK IN PLACE, LARGE BM TODAY/BSC, PAIN MANAGED WITH TYLENOL. DR MYLES IN TO SEE PT RE COLONOSCOPY CONSULT: PLAN FOR SCOPE ON WEDNESDAY AFTERNOON. WILL REPORT TO ONCOMING NOC RN.
[2023-02-18 20:04] VITALS: BP 124/61
[2023-02-18 21:45] LABS: Hematocrit 27.4 % (33.0-51.0); Hemoglobin 8.7 g/dL (11.5-16.0)
[2023-02-19 03:31] VITALS: BP 121/69
--- NOTE | 2023-02-19 05:34 | NUR ---
SHIFT SUMMARY NOC. PT A/O X4. PT MEDICATED FOR CHRONIC BACK PAIN X1 THIS SHIFT WITH SOME RELIEF. PT HAS PURE WIC AND ATTENDS FOR URINARY INCONTINENCE. PT VOIDING APPROPRIATLY. PT ON TELEMETRY AND IS SINUS LESLIE. DENIES CHEST PAIN OR SHORTNESS OF BREATH. RESTED WITH EYES CLOSED AND CALL LIGHT IN REACH.
[2023-02-19 05:36] LABS: Hematocrit 26.3 % (33.0-51.0); Hemoglobin 8.5 g/dL (11.5-16.0)
[2023-02-19 07:05] VITALS: BP 115/50
[2023-02-19 15:42] VITALS: BP 128/56
--- NOTE | 2023-02-19 16:32 | NUR ---
SHIFT SUMMARY: NO SIGNIFICANT CHANGES THROUGHOUT SHIFT. PAIN IS MANAGED WITH PO TYLENOL. SHE IS A MODERATE 2 PERSON ASSIST WITH GAIT BELT AND FWW. PATIENT IS INCONTINENT BUT HAS A PURWICK IN PLACE WITH OUTPUT THAT IS YELLOW. PATIENT HAD A BM AT THE [employer] [facility] [employer] THIS SHIFT AND TOLERATED RECLINED IN THE CHAIR EARLIER. PATIENT IS NOW LAYING BACK IN BED WITH CALL LIGHT IN REACH. PATIENT DID WORK WITH PHYSICAL AND OCCUPATIONAL THERAPY. SPIRITUAL CARE ALSO HAD A VISIT WITH THE PATIENT WELL. SHE CALLS APPROPRIATELY. SHE IS TOLERATING HER CLEAR LIQUID DIET.
[2023-02-19 19:12] VITALS: BP 110/47
[2023-02-20 03:31] VITALS: BP 126/56
[2023-02-20 05:17] LABS: Hematocrit 28.5 % (33.0-51.0); Hemoglobin 9.3 g/dL (11.5-16.0)
--- NOTE | 2023-02-20 05:25 | NUR ---
SHIFT SUMMRY PATIENT IS AOX4. REPOSTIONS T/O SHIFT. DROP FOOT BILATERALLY. USES GB AND FWW WITH 2 ASSIST TO TRANSFER. PATIENT DID NOT HAVE A BM THIS SHIFT, BUT REPORTS PASSING FLATUS. INCONT AT BASELINE, PUREWICK AND CLEAN ATTENDS IN PLACE. DENIES N/T. AWAITING SCOPE PREP AND SNF PLACEMENT. CALLS APPROPRIATELY.
[2023-02-20 07:16] VITALS: BP 127/70
[2023-02-20 15:17] VITALS: BP 128/77
--- NOTE | 2023-02-20 19:19 | NUR ---
SHIFT SUMMARY S/P MAY, A/OX4, VSS, TOLERATING PO, PAIN MANAGED PER EMAR, PT ENCOURAGED TO ASSIST WITH MOVEMENT ANYTIME SHE GETS UP AND TO DO PT EXERCISES IN BED TO HELP BUILD HER STRENGTH, SHE WAS UP TO THE SHOWER TODAY AND REPORTS FEELING MUCH BETTER, UP TO THE CHAIR T/O THE SHIFT AND WAS DOING STAND PIVOT TRANSFERS TO BSC. PLAN TO START BOWEL PREP TOMORROW PER GI WITH COLONOSCOPY Wednesday. NO ACUTE EVENTS THIS SHIFT, CALL LIGHT IN REACH.
[2023-02-20 19:24] VITALS: BP 120/53
[2023-02-21 03:36] VITALS: BP 112/59
[2023-02-21 04:31] LABS: Hematocrit 24.4 % (33.0-51.0)
[2023-02-21 05:01] LABS: Albumin/Globulin Ratio 0.7 (0.8-1.8); Bilirubin, Total 0.2 mg/dL (0.1-1.0); Bun/Creatinine Ratio 8.8 (12.0-20.0); Calcium, Blood 7.9 mg/dL (8.5-10.1); Creatinine, Blood 0.91 mg/dL (0.40-1.00); Globulin, Blood 2.9 g/dL (2.2-4.0); Potassium, Blood 3.6 mmol/L (3.5-5.5); Total Protein, Blood 4.9 g/dL (6.4-8.2)
[2023-02-21 07:37] VITALS: BP 139/62
[2023-02-21 14:45] VITALS: BP 114/58
--- NOTE | 2023-02-21 18:50 | NUR ---
SHIFT SUMMARY S/P MAY, A/XO4, VSS, TOLERATING DIET, PAIN MANAGED PER EMAR, UP TO CHAIR T/O MOST OF THE SHIFT. BOWEL PREP STARTED TODAY ORDERED FROM GI, PT EDUCATED ON PLAN FOR THE NIGHT AND HER SECOND BOWEL PREP DOSE IN THE AM AND PROCEEDURE TOMORROW. NO ACUTE EVENTS THIS SHIFT, CALL LIGHT IN REACH.
[2023-02-21 20:25] VITALS: BP 128/55
[2023-02-22 00:21] VITALS: BP 152/81
[2023-02-22 03:50] VITALS: BP 125/59
[2023-02-22 05:42] LABS: Hematocrit 24.9 % (33.0-51.0); Hemoglobin 8.1 g/dL (11.5-16.0)
[2023-02-22 06:20] LABS: Albumin, Blood 2.2 g/dL (3.4-5.0); Albumin/Globulin Ratio 0.8 (0.8-1.8); Bilirubin, Total 0.3 mg/dL (0.1-1.0); Bun/Creatinine Ratio 8.6 (12.0-20.0); Calcium, Blood 8.2 mg/dL (8.5-10.1); Creatinine, Blood 0.93 mg/dL (0.40-1.00); Globulin, Blood 2.9 g/dL (2.2-4.0); Potassium, Blood 3.7 mmol/L (3.5-5.5); Thyroid Stimulating Hormone 1.89 uIU/mL (0.360-4.800); Total Protein, Blood 5.1 g/dL (6.4-8.2)
--- NOTE | 2023-02-22 07:33 | NUR ---
SUMMARY A&O X4, VSS, ON RABANG PER TELE MONITOR, BATTER OUT REPORTED 2 EPISODES OF HR 38 & FREQUENT DROPS INTO THE 40'S, PT IS ASYMPTOMATIC & QUICKLY RETURNS TO 50-60'S, WAS NOTIFIED. BOWEL PREP CONTINUES, STOOL IS BROWN, NEXT DOSE B.PREP DUE @ 0800. REPORT GIVEN TO TONY BRAN, CALL LIGHT IN REACH
[2023-02-22 08:48] VITALS: BP 156/50
--- NOTE | 2023-02-22 13:08 | NUR ---
TELE RECEIVED CALL FROM ARCHIE IN TELE THAT PATIENT'S HEART RATE WAS SUSTAINING IN MID 40'S. PATIENT ASLEEP AT THIS TIME, EASILY AROUSABLE. WILL REPORT TO PRIMARY RN.
[2023-02-22 15:53] VITALS: BP 155/56
--- NOTE | 2023-02-22 16:50 | NUR ---
SHIFT SUMMARY PT HAS BEEN GETTING BOWEL CARE IN PREPARATION FOR COLONOSCOPY. PT CONTINUING TO HAVE BROWN LIQUID STOOLS. DR. BALDERAS NOTIFIED AND PLANS TO GIVE GOLYTELY OVERNIGHT IN PREPARATION FOR COLONOSCOPY TOMORROW. PT HAS BEEN MOSTLY INCONTINENT OF STOOL THIS SHIFT. SHE IS OCCASIONALLY ABLE TO USE A BEDPAN. PT IS RESTING IN BED, CALL LIGHT WITHIN REACH.
[2023-02-22 19:26] VITALS: BP 147/63
[2023-02-23] VITALS (23 sets, daily range): BP systolic 105–166; BP diastolic 51–85
--- NOTE | 2023-02-23 05:27 | NUR ---
SHIFT SUMMARY PT A&O X4, PT ON BOWEL PREP. HAVING MULTIPLE LOOSE STOOLS. STILL BROWN IN COLOR, BECOMING MORE YELLOW. BARRIER CREAM WAS APPLIED AFTER EVERY BM. VOIDING. VSS T/O NIGHT. NO OTHER CONCERNS AT THIS TIME. CALL LIGHT AALIYAH WILSON.
[2023-02-23 05:32] LABS: Hematocrit 25.2 % (33.0-51.0); Hemoglobin 8.2 g/dL (11.5-16.0)
--- NOTE | 2023-02-23 12:38 | NUR ---
PT HAS PICC LINE TO RIGHT UPPER ARM THAT FLUSHES WELL AND FLOWS TO GRAVITY.
--- NOTE | 2023-02-23 13:22 | NUR ---
02/23/23 1322 Emigdio Bell HISTORY, CHART, MEDICATIONS AND ALLERGIES REVIEWED BEFORE START OF PROCEDURE. PATIENT CONFIRMS NPO STATUS AND AGREES WITH SCHEDULED PROCEDURE. 3-LEAD EKG REVIEWED WITH PHYSICIAN PRIOR TO START OF PROCEDURE. MONITOR INTACT WITH CONTINUOUS PULSE OXIMETRY,CAPNOGRAPHY, 3-LEAD EKG, INTERMITTENT BP. SUPPLEMENTAL O2 TO BE TITRATED THROUGHOUT PROCEDURE TO MAINTAIN O2 SATURATION ABOVE 90%. PATIENT DETERMINED TO BE ASA APPROPRIATE FOR PROPOFOL SEDATION PRIOR TO START OF PROCEDURE BY DR. MYLES.
--- NOTE | 2023-02-23 16:13 | NUR ---
BRADYCARDIA PER ARCHIE [facility] PT'S HR DROPPED TO HIGH 30'S LOW 40'S FROM 1501 TO APPROXIMATELY 1600. PT WAS RESTING WITH EYES CLOSE AND WOKE TO VERBAL STIMULI. PT ASYMPTOMATIC. ARCHIE REPORTED PT'S HR INCREASED BACK TO THE 50'S AT APPROXOMATELY 1600.
--- NOTE | 2023-02-23 16:46 | NUR ---
PT'S HR IS IN THE LOW 40'S, AVG OF 42. PT RESTING WITH EYES CLOSED, WOKE TO VERBAL STIMULI. PT ASYMPTOMATIC.
--- NOTE | 2023-02-23 19:41 | NUR ---
SHIFT SUMMARY PT HAD A COLONOSCOPY TODAY. PT TOLERATED A SMALL AMOUNT OF DINNER. NO FURTHER SIGNIFICANT CHANGES TO REPORT AT THIS TIME. REPORT GIVEN TO BEE BRAN.
[2023-02-24 00:15] VITALS: BP 135/49
--- NOTE | 2023-02-24 01:18 | NUR ---
LATE ENTRY. TELEMETRY ORDERS. T/C PLACED TO HOSPITALIST AT 2039 ON 02/23/23 TO ADDRESS TELEMETRY ORDER. RECEIVED VERBAL ORDER FROM DR. PINEDA TO CONTINUE TELEMETRY AT THIS TIME DUE TO BRADYCARDIA EVENTS ON DAY SHIFT. PT IN NSR IN THE 70'S PER SACHIN MAYER AT START OF SHIFT. PT DENIES SOB OR CHEST PAIN.
[2023-02-24 05:52] LABS: Hematocrit 27.1 % (33.0-51.0)
--- NOTE | 2023-02-24 06:16 | NUR ---
UPDATE FROM TELE. SERRANO FROM TELEMETRY CALLED THIS RN TO NOTIFY THAT PT'S HEART RATE WENT TO 41 BPM. THIS RN CHECKED ON PATIENT. PT RESTING, A/O X4, PT DENIES CHEST PAIN, SHORTNESS OR BREATH OR DIZZINESS. CALL LIGHT WITHIN PT'S REACH.
--- NOTE | 2023-02-24 06:24 | NUR ---
SHIFT SUMMARY NOC. PT ADMITTED ON 02/03/23 WITH MAY. PT TESTED POSITIVE FOR COVID DURING STAY AND HAD A COLONOSCOPY YESTERDAY. TELEMETRY MONITORING IN PLACE, SEE NOTES RE THIS. PT A/O X4 THIS SHIFT. PT AMBULATED TO THE BR AND GOT UP IN CHAIR THIS MORNING WITH 2 PERSON ASSIST, GAITBELT AND WALKER. PT TOLERATING PO AND VOIDING. PT MEDICATED WITH TYLENOL X2 FOR CHRONIC BACK PAIN WITH SOME RELIEF. APPLIED MEPILEX DRESSING FOR REDNESS ON LEFT SIDE BUTTOCKS. PT RESTED THROUGHOUT THE NIGHT WITH CALL LIGHT IN REACH.
[2023-02-24 06:33] VITALS: BP 137/59
[2023-02-24 08:00] VITALS: BP 115/68
[2023-02-24 14:30] VITALS: BP 137/93
--- NOTE | 2023-02-24 18:05 | NUR ---
SHIFT SUMMARY ALERT, ORIENTED, PLEASANT, COOPERATIVE. 1 ASSIST WITH FWW AND GB TO TRANSFER TO BSC OR RECLINER. WORKED WELL WITH PHYSICAL THERAPY. NEG RAPID COVID, ISO DC'D. 2ND RAPID COVID TO BE COMPLETED AFTER 2200. PLAN TO DC TO SNF TOMORROW 02/25/23. TOLERATING DIET AND LIQUIDS. TELE DC'D. WILL REPORT TO OWNER SPA DIRECTOR RN.
[2023-02-24 19:25] VITALS: BP 133/56
[2023-02-25 05:17] VITALS: BP 124/59
--- NOTE | 2023-02-25 06:28 | NUR ---
SHIFT SUMMARY NOC. PT RESTED WELL WITH EYES CLOSED THROUGHOUT THE NIGHT. PT ABLE TO AMBULATE WITH 2 PERSON MODERATE ASSIST TO THE BEDSIDE COMMODE WITH GAIT BELT AND FWW. PT MEDICATED FOR PAIN WITH SOME RELIEF. PT TOLERATING PO INTAKE AND VOIDING APPROPRIATLY. CALL LIGHT WITHIN REACH.
[2023-02-25 07:44] VITALS: BP 149/66
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
--- NOTE | 2023-02-25 14:55 | NUR ---
DISCHARGE SUMMARY PT PICKED UP BY TRANSPORTATION, ASSISTED WITH TRANSFERRING HER TO TO GO HOME, REPORT CALLED TO [facility], CALLED AND UPDATED HER THAT SHE WAS IN TRANSPORT TO REHAB. NO QUESTIONS AT THIS TIME, PICC LINE REMOVED BY THIS RN AND WAS CONFIRMED TO BE SAME LENGTH INSERTED.
== END 2023-02-25 15:16 | DRG 871 ==
LOC: ER 21:01 → ICUE 21:02 → SURS 02-03 00:01 → PCU 02-03 00:01 → ICUE 02-03 02:20 → SURS 02-07 09:27 → PCU 02-08 21:37 → SURS 02-12 13:17
PROVIDERS: Emergency Medicine; Family Medicine; Hospitalist; Internal Medicine; Orthopaedic Surgery; Student in an Organized Health Care Education/Training Program; ADMIT Internal Medicine
PROC: 3E033XZ Introduction of Vasopressor into Peripheral Vein, Percutaneous Approach (ICD-10-PCS; principal; 2023-02-03)
PROC: 3E03329 Introduction of Other Anti-infective into Peripheral Vein, Percutaneous Approach (ICD-10-PCS; 2023-02-05)
PROC: 30233N1 Transfusion of Nonautologous Red Blood Cells into Peripheral Vein, Percutaneous Approach (ICD-10-PCS; 2023-02-10)
PROC: 0T9B70Z Drainage of Bladder with Drainage Device, Via Natural or Artificial Opening (ICD-10-PCS; 2023-02-10)
PROC: 0DB68ZX Excision of Stomach, Via Natural or Artificial Opening Endoscopic, Diagnostic (ICD-10-PCS; 2023-02-17)
PROC: 0DJD8ZZ Inspection of Lower Intestinal Tract, Via Natural or Artificial Opening Endoscopic (ICD-10-PCS; 2023-02-23)
DX: A41.51 Sepsis due to Escherichia coli [E. coli] (principal); K29.71 Gastritis, unspecified, with bleeding; R65.21 Severe sepsis with septic shock; U07.1 COVID-19; I69.354 Hemiplegia and hemiparesis following cerebral infarction affecting left non-dominant side; E87.20 Acidosis, unspecified; I48.20 Chronic atrial fibrillation, unspecified; N17.9 Acute kidney failure, unspecified; N13.6 Pyonephrosis; D62 Acute posthemorrhagic anemia; R18.8 Other ascites; K31.89 Other diseases of stomach and duodenum; E03.9 Hypothyroidism, unspecified; R33.9 Retention of urine, unspecified; M54.9 Dorsalgia, unspecified; E86.0 Dehydration; D63.1 Anemia in chronic kidney disease; I12.9 Hypertensive chronic kidney disease with stage 1 through stage 4 chronic kidney disease, or unspecified chronic kidney disease; E11.22 Type 2 diabetes mellitus with diabetic chronic kidney disease; I48.0 Paroxysmal atrial fibrillation; N18.2 Chronic kidney disease, stage 2 (mild); L89.109 Pressure ulcer of unspecified part of back, unspecified stage; K74.60 Unspecified cirrhosis of liver; E11.622 Type 2 diabetes mellitus with other skin ulcer; M16.12 Unilateral primary osteoarthritis, left hip; G89.29 Other chronic pain; W18.30XA Fall on same level, unspecified, initial encounter; E11.69 Type 2 diabetes mellitus with other specified complication; E78.2 Mixed hyperlipidemia; K64.5 Perianal venous thrombosis; K59.00 Constipation, unspecified; M19.90 Unspecified osteoarthritis, unspecified site; Z98.890 Other specified postprocedural states; Z96.659 Presence of unspecified artificial knee joint; Z96.619 Presence of unspecified artificial shoulder joint; Z79.890 Hormone replacement therapy; Z79.899 Other long term (current) drug therapy; Z79.01 Long term (current) use of anticoagulants; Z79.891 Long term (current) use of opiate analgesic
CPT/HCPCS: 0241U; 36415; 36569; 51702; 51798; 70450; 71045; 73502; 73610; 73630; 76770; 80047; 80048; 80053; 81001; 82271; 82533; 82607; 82728; 82746; 82947; 83540; 83550; 83605; 83735; 83880; 84100; 84439; 84443; 84484; 85014; 85018; 85025; 85027; 85045; 85520; 85610; 85730; 86850; 86900; 86901; 86923; 87040; 87077; 87086; 87186; 87426; 87811; 88305; 88342; 93005; 93010; 93306; 93971; 96361; 96365; 96375; 97110; 97162; 97166; 97530; 97535; 99285-25; A9270; C1751; C9113; J0282; J0696; J0713; J1644; J2001; J2405; J2704; J3370; J7030; J7040; J7050; J7060; J7070; J7120; P9016

== ENCOUNTER 2023-11-24 10:24 | Inpatient (IN) | payer MEDICARE, OTHER ==
[~2023-11-24] VITALS: Ht 162.6 cm; Wt 64.6 kg
[2023-11-24 11:44] LABS: BASOPHILS ABSOLUTE AUTO 0.04 K/mm3 (0.00-0.23); BASOPHILS PERCENT AUTO 0 % (0-2); EOSINOPHILS PERCENT AUTO 0 % (0-6); Hematocrit 29.8 % (33.0-51.0); Hemoglobin 10.3 g/dL (11.5-16.0); IMMATURE GRAN ABSOLUTE AUTO 0.02 K/mm3 (0.00-0.10); IMMATURE GRAN PERCENT AUTO 0 % (0-1); LYMPHOCYTES ABSOLUTE AUTO 0.87 K/mm3 (0.84-5.20); LYMPHOCYTES PERCENT AUTO 10 % (21-46); MONOCYTES ABSOLUTE AUTO 0.85 K/mm3 (0.16-1.47); MONOCYTES PERCENT AUTO 9 % (4-13); Mean Corpuscular HGB Conc 34.6 g/dL (31.5-36.5); Mean Corpuscular Volume 90 fL (80-100); Mean Platelet Volume 10.5 fL (9.1-12.4); NEUTROPHILS ABSOLUTE AUTO 7.22 K/mm3 (1.96-9.15); NEUTROPHILS PERCENT AUTO 80 % (41-73); Platelet Count 271 K/mm3 (150-400); RDW Coefficient Variation 12.4 % (11.7-14.2); RDW Standard Deviation 40.7 fL (35.1-46.3); Red Blood Cell Count 3.32 M/mm3 (3.80-5.20)
[2023-11-24 11:52] LABS: pH Blood Venous 7.43 (7.34-7.37)
[2023-11-24 11:53] LABS: Base Excess Venous 0.6 mmol/L; Bicarbonate Venous 24.9 mmol/L (24.0-30.0); PCO2 Venous 37 mmHg (38-42)
[2023-11-24 11:54] LABS: Source, Urine Straight Cath
[2023-11-24 11:55] LABS: Albumin/Globulin Ratio 1.1 (0.8-1.8); Bilirubin, Total 0.5 mg/dL (0.1-1.0); Bun/Creatinine Ratio 9.6 (12.0-20.0); Calcium, Blood 10.4 mg/dL (8.5-10.1); Creatinine, Blood 3.64 mg/dL (0.40-1.00); Globulin, Blood 3.6 g/dL (2.2-4.0); Magnesium, Blood 2.2 mg/dL (1.6-2.4); Potassium, Blood 4.5 mmol/L (3.5-5.5); Total Protein, Blood 7.6 g/dL (6.4-8.2)
[2023-11-24 12:08] LABS: Appearance, Urine Hazy (Clear); Bilirubin, Urine Neg (Neg); Blood, Urine 1+ (Neg); Glucose Qualitative, Urine Neg (Neg); Ketones, Urine Neg (Neg); Leukocyte Esterase, Urine 1+ (Neg); Nitrite, Urine Neg (Neg); Protein, Urine 2+ (Neg); Urobilinogen, Urine NORM (Normal)
[2023-11-24 12:26] LABS: U Amphetamine Screen Not Detected; U Barbituate Screen Not Detected; U Benzodiazapine Screen DETECTED; U Buprenorphine Screen Not Detected; U Cannabinoids Screen Not Detected; U Cocaine Screen Not Detected; U Methadone Screen Not Detected; U Methamphetamine Screen Not Detected; U Opiates Screen DETECTED; U Oxycodone Screen Not Detected; U Phencyclidine Screen Not Detected
[2023-11-24 12:39] LABS: Color, Urine Pale Yellow (P-Yellow)
[2023-11-24 12:46] LABS: Amorphous Light (0-Heavy); Bacteria Many /hpf; Squamous Epithelial Cells Few /hpf (Few); White Blood Cells, Urine 25-50 /hpf (0-5)
[2023-11-24 13:01] LABS: Influenza A, PCR NEGATIVE (NEGATIVE); Influenza B, PCR NEGATIVE (NEGATIVE); Resp Syncytial Virus, PCR NEGATIVE (NEGATIVE); SARS-Cov-2 (COVID-19) PCR, MMC NEGATIVE (NEGATIVE)
[2023-11-24] MEDS ORDERED: NS 1,000 ML IV SCH ×2 (13:15→15:00)
[2023-11-24] MEDS ORDERED: Polyethylene Glycol 3350 17 gm PO PRN (14:55)
[2023-11-24] MEDS ORDERED: Acetaminophen 500 MG Tab PO PRN (14:55)
[2023-11-24 17:08] VITALS: BP 130/68
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
[2023-11-24 20:05] VITALS: BP 112/98
[2023-11-25 02:43] VITALS: BP 107/50
[2023-11-25 05:16] LABS: BASOPHILS ABSOLUTE AUTO 0.07 K/mm3 (0.00-0.23); BASOPHILS PERCENT AUTO 1 % (0-2); EOSINOPHILS ABSOLUTE AUTO 0.06 K/mm3 (0.00-0.68); EOSINOPHILS PERCENT AUTO 1 % (0-6); Hematocrit 25.4 % (33.0-51.0); Hemoglobin 8.6 g/dL (11.5-16.0); IMMATURE GRAN ABSOLUTE AUTO 0.02 K/mm3 (0.00-0.10); IMMATURE GRAN PERCENT AUTO 0 % (0-1); LYMPHOCYTES ABSOLUTE AUTO 1.04 K/mm3 (0.84-5.20); LYMPHOCYTES PERCENT AUTO 18 % (21-46); MONOCYTES ABSOLUTE AUTO 0.83 K/mm3 (0.16-1.47); MONOCYTES PERCENT AUTO 14 % (4-13); Mean Corpuscular HGB Conc 33.9 g/dL (31.5-36.5); Mean Corpuscular Volume 92 fL (80-100); Mean Platelet Volume 10.7 fL (9.1-12.4); NEUTROPHILS ABSOLUTE AUTO 3.91 K/mm3 (1.96-9.15); NEUTROPHILS PERCENT AUTO 66 % (41-73); Platelet Count 202 K/mm3 (150-400); RDW Coefficient Variation 12.7 % (11.7-14.2); RDW Standard Deviation 42.2 fL (35.1-46.3); Red Blood Cell Count 2.77 M/mm3 (3.80-5.20); White Blood Cell Count 5.93 K/mm3 (4.00-11.30)
[2023-11-25 05:44] LABS: Anion Gap 11 mmol/L (3-11); Blood Urea Nitrogen 36 mg/dL (8-24); Bun/Creatinine Ratio 11.1 (12.0-20.0); CO2, Blood 25 mmol/L (21-32); Calcium, Blood 8.8 mg/dL (8.5-10.1); Chloride, Blood 105 mmol/L (98-108); Creatinine, Blood 3.24 mg/dL (0.40-1.00); Glomerular Filtration Rate 14 (60-); Glucose, Blood 86 mg/dL (70-99); Magnesium, Blood 1.6 mg/dL (1.6-2.4); Phosphorus, Blood 3.5 mg/dL (2.5-4.9); Potassium, Blood 4.2 mmol/L (3.5-5.5); Sodium, Blood 137 mmol/L (136-145)
--- NOTE | 2023-11-25 06:38 | NUR ---
END OF SHIFT SUMMARY PT DROWSY/LETHARGIC. AWAKENS TO VERBAL STIMULI. ORIENTED TO PERSON ONLY. NON-SENSICAL CONVERSATION WITH SOFT, MUMBLED SPEECH. SALAZAR REMAINS IN PLACE, SOMEWHAT POSITIONAL. IVF COMPLETED THIS AM, NO SL. PT DECLINED FOOD FOR DINNER AND DURING NIGHT, ONLY EATING A FEW SPOONFULLS OF PUDDING, TOLERATING WELL. NO ACUTE EVENTS OVERNIGHT.
[2023-11-25 07:18] VITALS: BP 106/56
[2023-11-25] MEDS ORDERED: Cholecalciferol 1000 Unit Tablet (=25MCG) PO SCH (09:00)
--- NOTE | 2023-11-25 15:51 | NUR ---
Spiritual Care Visit. Pt. is awake in bed when she welcomes my visit. Pt. is pleasant. This founder and chief technical officer gave the Pt. a special greeting from Chaplain Anibal Amado. The Pt. responded with a smile and a story about how they had connected about music. Listen with interest and emapthy. Considered matters of watson and purpose. Prayed with the Pt. Pt. verbalized gratitude for the spiritual care visit and welcomed this alyssa to return.
[2023-11-25 16:55] VITALS: BP 104/55
--- NOTE | 2023-11-25 17:34 | NUR ---
SHIFT SUMMARY: PATIENT A/O TO SELF AND PLACED, SPEECH IS CLEAR AND ABLE FOLLOW SIMPLE COMMAND. OVERALL, PATIENT MENTATION HAS IMPROVED TODAY. PATIENT SENSATIONS INTACT AND STRENGTH ARE EQUALLY WEAK TO ALL EXTREMITIES. PATIENT REPORTS PAIN "ALL OVER", MEDICATED c PO EMAR PAIN MEDS AND REPOSITIONING c GOOD EFFECT. PATIENT EATING AND DRINKING WITHOUT ANY COUGHING OR SIGNS OF DIFFICULTY SWALLOWING, FAIR APPETITE. PATIENT HAS SALAZAR PLACED IN ED FOR ACUTE RETENTION, PATENT DRAINING YELLOW URINE c MOD SEDIMENT. PATIENT RECEIVED SCHEDULED MEDS PER EMAR. VITAL SIGNS REVIEWED. BED ALARM ON FOR SAFETY. CALL LIGHT IN REACH.
[2023-11-25 19:23] VITALS: BP 102/60
[2023-11-25] MEDS ORDERED: FUROSEMIDE40 MG PO (23:50)
[2023-11-25] MEDS ORDERED: SULFAMETHOXAZO1 EAC1 PO (23:52)
[2023-11-26 04:33] VITALS: BP 112/78
--- NOTE | 2023-11-26 05:11 | NUR ---
END OF SHIFT SUMMARY PT MORE ALERT AND ORIENTED X3-4, ONLY FORGETFUL TO SOME EVENTS. PT HOPEFUL TO D/C HOME TODAY. SALAZAR REMAINS IN PLACE WITH YELLOW URINE WITH SEDIMENT.PT NOOBY. GEN WEAKNESS. DENIES APPETITE AND C/O NAUSEA WHEN FOOD IN FRONT OF HER, STATES THIS IS ONGOING. NO NEW EVENTS OVERNIGHT.
[2023-11-26 05:31] LABS: Hemoglobin 8.9 g/dL (11.5-16.0); Mean Corpuscular HGB 30.6 pg (26.0-34.0); Mean Corpuscular Volume 93 fL (80-100); Mean Platelet Volume 10.6 fL (9.1-12.4); Platelet Count 199 K/mm3 (150-400); RDW Coefficient Variation 12.8 % (11.7-14.2); RDW Standard Deviation 42.8 fL (35.1-46.3); Red Blood Cell Count 2.91 M/mm3 (3.80-5.20); White Blood Cell Count 5.36 K/mm3 (4.00-11.30)
[2023-11-26 06:00] LABS: Albumin, Blood 2.9 g/dL (3.4-5.0); Anion Gap 12 mmol/L (3-11); Blood Urea Nitrogen 35 mg/dL (8-24); Bun/Creatinine Ratio 13.4 (12.0-20.0); CO2, Blood 24 mmol/L (21-32); Calcium, Blood 8.2 mg/dL (8.5-10.1); Chloride, Blood 104 mmol/L (98-108); Creatinine, Blood 2.62 mg/dL (0.40-1.00); Ferritin, Serum 79 ng/mL (8-252); Glomerular Filtration Rate 18 (60-); Glucose, Blood 98 mg/dL (70-99); Iron Serum 27 ug/dL (50-170); Magnesium, Blood 2.2 mg/dL (1.6-2.4); Percent Saturation 13.9 % (15.0-50.0); Phosphorus, Blood 3.1 mg/dL (2.5-4.9); Potassium, Blood 3.9 mmol/L (3.5-5.5); Sodium, Blood 136 mmol/L (136-145); Total Iron Binding Capacity 194 ug/dL (250-450)
[2023-11-26 07:37] VITALS: BP 108/67
[2023-11-26] MEDS ORDERED: HYDROcodone 5-APAP 325 TAB PO PRN (09:30)
--- NOTE | 2023-11-26 09:30 | NUR ---
VERBAL ORDER ATTENDING PHYSICIAN AT BEDSIDE ORDERED HOME MEDICATION OF NORCO 5/325 1 TAB Q 8 HOURS PRN. STATED TO EDUCATE PATIENT TO NOT TAKE IBUPROFEN AT HOME AT DISCHARGE, PATIENT EDUCATED AND RECEPTIVE.
--- NOTE | 2023-11-26 10:14 | NUR ---
REMOVED SALAZAR CATHETER AT 1010, PATIENT TOLERATED WELL. WILL BLADDER SCAN PER ORDERS.
[2023-11-26 15:57] VITALS: BP 144/62
--- NOTE | 2023-11-26 18:55 | NUR ---
SHIFT SUMMARY PATIENT A/OX3, ABLE TO MAKE NEEDS KNOWN. 1 PERSON ASSIST FOR TRANSFERS WITH [facility] AND [facility]. PATIENT COMPLAINING OF BACK AND SHOULDER PAIN TODAY, HOME MED OF [place] ORDERED AND ADMINISTERED X1. SALAZAR CATH REMOVED THIS AM AT 1010, HAS NOT VOIDED AT THIS TIME AND MOST RECENT BLADDER SCAN OF 370ML AROUND 1845. PHYSICAL THERAPY ORDERED, NOT ASSESSED YET TODAY. NO OTHER CONCERNS AT THIS TIME.
[2023-11-26 20:03] VITALS: BP 98/62
--- NOTE | 2023-11-26 23:10 | NUR ---
PATIENT HAS NOT VOIDED SINCE SALAZAR CATHETER WAS REMOVED ON DAYSHIFT PER REPORT AND PATIENT HAD NOT VOIDED THIS SHIFT. BLADDER SCAN DONE AND URINE AMOUNT >500ML. CALL PLACED TO HOSPITALIST. ORDERED FOR PATIENT TO BE STRAIGT CATHED D/T RETENTION.
[2023-11-27 03:21] VITALS: BP 106/46
--- NOTE | 2023-11-27 05:00 | NUR ---
SHIFT SUMMARY. PATIENT IS A&OX3-4. PATIENT IS ABLE TO MAKE HER NEEDS KNOWN. PATIENT STATED TO THIS RN "I DONT FEEL COMFORTABLE GOING HOME TOMORROW, I AM VERY WEAK". ORDER FOR PT IS IN. PATIENT HAVING ISSUES WITH URINATING THIS SHIFT-SEE PREVIOUS NOTES. PATIENT IS PLEASANT AND ABLE TO MAKE HER NEEDS KNOWN. PATIENT BALDDER SCAN SHOWING VOLUMES GREATER THAN 300ML'S. PATIENT IS ABLE TO ASSIST TO ROLL OVER. PATIENT DID NOT GET UP THIS SHIFT. PATIENT SLEPT WELL TONIGHT. BED IS LOCKED IN THE LOWEST POSITION WITH CALL LIGHT WITHIN REACH. CARE IS ONGOING.
[2023-11-27 06:44] LABS: Source, Urine Foley catheter
[2023-11-27 06:48] LABS: Appearance, Urine Clear (Clear); Bilirubin, Urine Neg (Neg); Blood, Urine Neg (Neg); Glucose Qualitative, Urine Neg (Neg); Ketones, Urine Neg (Neg); Leukocyte Esterase, Urine 2+ (Neg); Nitrite, Urine Neg (Neg); Protein, Urine Neg (Neg); Urobilinogen, Urine NORM (Normal)
[2023-11-27 06:50] LABS: Color, Urine No Color (P-Yellow)
[2023-11-27 07:02] LABS: Bacteria Many /hpf; Red Blood Cells, Urine 0-2 /hpf (0-2); Squamous Epithelial Cells Few /hpf (Few)
[2023-11-27 07:51] VITALS: BP 111/58
[2023-11-27 09:16] LABS: Bun/Creatinine Ratio 13.9 (12.0-20.0); Calcium, Blood 8.6 mg/dL (8.5-10.1); Creatinine, Blood 2.01 mg/dL (0.40-1.00); Potassium, Blood 4.1 mmol/L (3.5-5.5); Thyroid Stimulating Hormone 1.7 uIU/mL (0.360-4.800)
[2023-11-27 15:29] VITALS: BP 123/62
[2023-11-27 15:30] VITALS: BP 123/62
[2023-11-27 19:39] VITALS: BP 113/60
--- NOTE | 2023-11-27 19:59 | NUR ---
DAY SHIFT SUMMARY: A&Ox4. PLEASANT AND COOPERATIVE WITH CARE. ANXIOUS AND FIXATED ON DISCHARGE PLAN. LONG CONVERSATION WITH DR. FAGAN TODAY REGARDING CONCERNS OF GOING HOME. WANTED TO KEEP SALAZAR IN TODAY FOR FEAR OF RETENTION. WANTS TO DC GLUCOSE CHECKS D/T PAIN ASSOCIATED WITH LANCETS. BED IN LOWEST POSITION. CALL LIGHT WITHIN REACH. REPORT TO ONCOMING RN.
[2023-11-28 02:41] VITALS: BP 122/66
--- NOTE | 2023-11-28 04:16 | NUR ---
SHIFT SUMMARY ADMITTED FOR ANTICHOLINERIC SYNDROME/AMS. FULL CODE. SHE IS CONFUSED THIS SHIFT. SHE DOES NOT REMEMBER WHERE SHE IS, EVEN WITH REORIENTING FREQUENTLY. SALAZAR FOR RETENTION. ADA DIET. 1 ASSIST W/FWW & GB - BSC. ON RA. 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
[2023-11-28 07:17] VITALS: BP 126/73
[2023-11-28 09:12] LABS: Bun/Creatinine Ratio 14.9 (12.0-20.0); Calcium, Blood 8.7 mg/dL (8.5-10.1); Creatinine, Blood 1.68 mg/dL (0.40-1.00); Potassium, Blood 4.2 mmol/L (3.5-5.5)
[2023-11-28 19:17] VITALS: BP 100/65
--- NOTE | 2023-11-28 19:31 | NUR ---
a&Ox2-3. PLEASANT AND COOPERATIVE WITH CARE. UTILIZES CALL LIGHT AND IS ABLE TO ADVOCATE NEEDS EFFECTIVELY. AMBULATES 1PA c FWW. LEFT FOOT DROP R/T Hx CVA. SALAZAR PULLED TODAY; 210mL POST-SALAZAR RESIDUAL NOT RESOLVED WITH TOILETING. EVENTUALLY CALLED STATING SHE'D SOILED HER DEPENDS WITH URINE. MEDS WHOLE WITH FLUIDS. MEDICATED x1 PAIN. PER DR FAGAN, IF BLADDER SCAN >300mL AND SYMPTOMATIC, STRAIGHT CATH -- DO NOT PLACE SALAZAR. BED IN LOWEST POSITION. CALL LIGHT WITHIN REACH. ALL NEEDS MET. REPORT TO ONCOMING RN.
--- NOTE | 2023-11-29 04:31 | NUR ---
SUMMARY: PT A/OX3, CALLS APPROPRIATELY TO SPECIFY NEEDS AND IS PLEASANT AND COOPERATIVE W/CARE. BED ALARM IN ON FOR OCC.FORGETFULLNESS, FALL RISK AND IMPULSIVITY. SHE'S 1PA W/FWW TO [facility] [place] R/T L.FOOT DROP. PT WAS INCONTINENT AT TIME W/ATTENDS CHANGED PRN AND HAS VOIDED T/O NOCTE W/O S/S RETENTION OR NEED FOR ST.CATH. [facility]CO PROVIDED PER PT REQUEST FOR TOLERABLE RELIEF OF BACK PAIN. NO ACUTE CHANGES, VSS/AFEBRILE. WCTM AND REPORT TO DAY RN.
[2023-11-29 04:40] VITALS: BP 110/75
[2023-11-29 07:37] VITALS: BP 121/73
--- NOTE | 2023-11-29 09:00 | NUR ---
pt sitting up in recliner with eyes closed, wakes easily, is pleasant and cooperative with care, follows commands well, is a/ox3, forgetful, lungs are clear t/o, resp even and unlabored, no cough noted, hrr, no edema noted, ppp+1, cap refill <3sec vs stable, afebrile, piv to lac site is clear and patent, btx4, abd flat soft nontender, voids without diff, skin c/w/d, maew except left foot has foot drop, amanda, call light in reach.
[2023-11-29] MEDS ORDERED: MULVITA PO (13:18)
[2023-11-29] MEDS ORDERED: Vitamin D1000 UNI1 PO (14:26)
--- NOTE | 2023-11-29 14:49 | NUR ---
pt has been discharged to home, iv removed intact, went over discharge instructions with her and son, they verbalized understanding. left with all belongings via wheelchair with lpta in attendence.
== END 2023-11-29 14:57 | disposition home or self-care (01) | DRG 918 ==
LOC: ER 10:24 → MEDS 10:25
PROVIDERS: Emergency Medicine; Internal Medicine; ADMIT Internal Medicine
DX: T44.3X1A Poisoning by other parasympatholytics [anticholinergics and antimuscarinics] and spasmolytics, accidental (unintentional), initial encounter (principal); N17.9 Acute kidney failure, unspecified; I48.21 Permanent atrial fibrillation; R33.9 Retention of urine, unspecified; I12.9 Hypertensive chronic kidney disease with stage 1 through stage 4 chronic kidney disease, or unspecified chronic kidney disease; E78.5 Hyperlipidemia, unspecified; I67.9 Cerebrovascular disease, unspecified; E03.9 Hypothyroidism, unspecified; F11.10 Opioid abuse, uncomplicated; N18.30 Chronic kidney disease, stage 3 unspecified; E11.22 Type 2 diabetes mellitus with diabetic chronic kidney disease; Z86.73 Personal history of transient ischemic attack (TIA), and cerebral infarction without residual deficits; Z79.899 Other long term (current) drug therapy; Z79.890 Hormone replacement therapy; Z79.01 Long term (current) use of anticoagulants; Z79.891 Long term (current) use of opiate analgesic; Z98.890 Other specified postprocedural states
CPT/HCPCS: 0241U; 36415; 51701; 51702; 51798; 70450; 71045; 74176; 80048; 80053; 80069; 81001; 82550; 82728; 82803; 82947; 83540; 83550; 83735; 84100; 84443; 85025; 85027; 87086; 93005; 93010; 96360-59; 97110; 97116; 97161; 97530; 99285-25; A9270; G0378; J7030